=== PATIENT | male | born 1990 | race Caucasian/White ===

== ENCOUNTER 2018-08-22 11:38 | Inpatient (IN) | payer MEDICAID, MEDICARE ==
[2018-08-22] MEDS ORDERED: Ondansetron 4 MG Tab.DIS PO ONE (13:06)
[2018-08-22 13:15] LABS: ACETAMINOPHEN 154 ug/mL (10-30)
[2018-08-22] MEDS ORDERED: ACETAMINOPHEN IV ONE (13:43)
[2018-08-22] MEDS ORDERED: Acetylcysteine 20% 200 MG/ML 30 ML SDV IV ONE ×3 (13:47→14:18)
[2018-08-22] MEDS: Sodium Chloride 0.9% 10 ML Syringe FLUSH PRN ×2 (14:06→16:20)
--- NOTE | 2018-08-22 15:00 | EDM.PDOCBH ---
ED HPI GENERAL MEDICAL PROBLEM - General Chief Complaint: Drug or Alcohol Abuse Stated Complaint: INTOXICATION Time Seen by Provider: 08/22/18 12:00 Source of Information: Reports: Patient, Family History Limitations: Reports: No Limitations - History of Present Illness INITIAL COMMENTS - FREE TEXT/NARRATIVE: c/o APAP overdose pt states he tooks 30 tabs of APAP (500 mg) and 10 tabs of melatonin at 10 PM and then went to sleep, he woke up this morning and had n/v, told his mother what he had done, mother called poison control who said he had to come to hospital, poison control called us before pt's arrival mother thinks he took 10-20 tabs (5 to 10 gm) not working, lives with mother and grandmother at first would not say why he had taken them, then admitted that "I did not want to wake up" his father 1y ago, he has inc'd depression and despondency in the past month, not willing to leaving the house, sleeping poorly, eating very little he had gone to school for his GED from noon to five on Thu to ur, however stopped going he 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, performin at 6th grade level delayed crawling, poor speech until pharyngeal flap done at age 6, 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 father from diabetes and asthma no previous OD, no previous suicide attempt, no previous psych hospitalizations mother reports that pt does videogames, had gone to school, done little in past 2d PCP Dr Sharp who has rx'ed olanzapine and other meds, hydroxyzine added 2w ago at last visit pt states he has not taken his meds in the past 2w - Related Data Allergies Allergy/AdvReac Type Severity Reaction Status Date / Time No Known Allergies Allergy Verified 08/22/18 12:43 Home Meds: Home Meds Benztropine [Cogentin] 0.5 mg PO DAILY 08/22/18 [History] Benztropine [Cogentin] 1 mg PO DAILY 08/22/18 [History] OLANZapine [Olanzapine] 10 mg PO DAILY 08/22/18 [History] Pantoprazole [ProTONIX] 40 mg PO DAILY 08/22/18 [History] hydrOXYzine pamoate [Vistaril] 25 mg PO Q8H PRN 08/22/18 [History] lamoTRIgine 200 mg PO DAILY 08/22/18 [History] Past Medical History HEENT History: Reports: Impaired Vision Psychiatric History: Reports: Depression - Past Surgical History HEENT Surgical History: Reports: Adenoidectomy, Tonsillectomy, Other (See Below) Other HEENT Surgeries/Procedures: Pharyngeal flap when a young child. Social & Family History - Family History Family Medical History: Noncontributory - Tobacco Use Smoking Status *Q: Never Smoker - Caffeine Use Caffeine Use: Reports: Soda, Tea - Recreational Drug Use Recreational Drug Use: No ED ROS GENERAL - Review of Systems Review Of Systems: See Below Constitutional: Reports: No Symptoms HEENT: Reports: No Symptoms Respiratory: Reports: No Symptoms Cardiovascular: Reports: No Symptoms Endocrine: Reports: No Symptoms GI/Abdominal: Reports: No Symptoms : Reports: No Symptoms Musculoskeletal: Reports: No Symptoms Skin: Reports: No Symptoms Neurological: Reports: No Symptoms Psychiatric: Reports: Depression, Suicidal Ideation. Denies: Agitation, Hallucinations, Homicidal Ideation Hematologic/Lymphatic: Reports: No Symptoms Immunologic: Reports: No Symptoms ED EXAM, BEHAVIORAL HEALTH - Physical Exam Exam: See Below Exam Limited By: No Limitations General Appearance: Alert, WD/WN, No Apparent Distress, Other (pleasant, shaking a little, appears anxious, says "I did a dumb thing", has insight into his actions, no HI, cooperated with exam, no agitation, no hostility, rested on his back while in the ED) Eye Exam: Bilateral Eye: EOMI, Normal Inspection, PERRL Nose: Normal Inspection Throat/Mouth: Normal Inspection, Normal Lips, Normal Teeth, Normal Gums, Normal Oropharynx, Normal Voice, No Airway Compromise, Other (very poor dentition with malalignment and deep caries) Neck: Normal Inspection, Supple, Non-Tender, Full Range of Motion. No: Lymphadenopathy (R), Lymphadenopathy (L) Respiratory/Chest: No Respiratory Distress, Lungs Clear Cardiovascular: Regular Rate, Rhythm, No Edema, No Gallop, No Murmur, No Rub GI/Abdominal: Soft, Non-Tender, No Distention Back Exam: Normal Inspection, Full Range of Motion. No: CVA Tenderness (R), CVA Tenderness (L) Extremities: Normal Inspection, Non-Tender, No Pedal Edema Neurological: Alert, CN II-XII Intact, No Motor/Sensory Deficits Psychiatric: Alert, Depressed Mood, Suicidal Plan, Suicidal Thoughts. No: Tearful, Agitated, Poor Eye Contact, Uncooperative, Flight of Ideas, Homicidal Thoughts, Phobic, Auditory Hallucinations, Visual Hallucinations, Paranoid Thoughts Skin Exam: Warm, Dry, Intact, Normal color, No rash COURSE, BEHAVIORAL HEALTH COMP - Course Vital Signs: Last Vital Signs Temp 36.3 C 08/22/18 12:45 Pulse 76 08/22/18 12:45 Resp 18 08/22/18 12:45 BP 118/74 08/22/18 12:45 Pulse Ox 99 08/22/18 12:45 Orders, Labs, Meds: Active Orders 24 hr Category Date Time Status DRUG SCREEN, URINE ALERE [URCHEM] Stat Lab 08/22/18 12:45 Ordered UA W/MICROSCOPIC [URIN] Stat Lab 08/22/18 12:45 Ordered Acetylcysteine [Acetadote 20%] 3,200 mg Med 08/22/18 16:00 Active Dextrose 5% in Water 500 ml IV ONETIME Acetylcysteine [Acetadote 20%] 6,400 mg Med 08/22/18 20:00 Active Dextrose 5% in Water 1,000 ml IV ONETIME Acetylcysteine [Acetadote 20%] 9,500 mg Med 08/22/18 15:00 Active Dextrose 5% in Water 200 ml IV ONETIME Sodium Chloride 0.9% [Saline Flush] Med 08/22/18 14:06 Active 10 ml FLUSH ASDIRECTED PRN EKG 12 Lead [EK] Routine Ther 08/22/18 12:45 Ordered Medication Orders Acetylcysteine 9,500 mg/ (Dextrose/Water) 247.5 mls @ 247.5 mls/hr IV ONETIME ONE Stop: 08/22/18 15:59 Acetylcysteine 3,200 mg/ (Dextrose/Water) 516 mls @ 129 mls/hr IV ONETIME ONE Stop: 08/22/18 19:59 Acetylcysteine 6,400 mg/ (Dextrose/Water) 1,032 mls @ 64.5 mls/hr IV ONETIME ONE Stop: 08/23/18 11:59 Sodium Chloride (Saline Flush) 10 ml FLUSH ASDIRECTED PRN PRN Reason: IV Use Last Admin: 08/22/18 14:06 Dose: 10 ml Laboratory Tests 08/22/18 08/22/18 08/22/18 Range/Units 12:44 12:44 12:44 WBC 13.2 H (4.5-12.0) X10-3/uL RBC 5.58 (4.30-5.75) x10(6)uL Hgb 16.0 H (11.5-15.5) g/dL Hct 46.6 (30.0-51.3) % MCV 83.6 (80-96) fL MCH 28.6 (27.7-33.6) pg MCHC 34.2 (32.2-35.4) g/dL RDW 12.4 (11.5-15.5) % Plt Count 326 (125-369) X10(3)uL MPV 8.6 (7.4-10.4) fL Add Manual Diff Yes Neutrophils % (Manual) 88 H (46-82) % Band Neutrophils % 1 (0-6) % Lymphocytes % (Manual) 8 L (13-37) % Monocytes % (Manual) 3 L (4-12) % PT (8.7-11.1) INR (0.89-1.13) Sodium 141 (135-145) mmol/L Potassium 4.3 (3.5-5.3) mmol/L Chloride 104 (100-110) mmol/L Carbon Dioxide 23 (21-32) mmol/L BUN 12 (7-18) mg/dL Creatinine 1.2 (0.70-1.30) mg/dL Est Cr Clr Drug Dosing TNP Estimated GFR (MDRD) > 60 (>60) BUN/Creatinine Ratio 10.0 (9-20) Glucose 212 H (80-116) mg/dL Calcium 9.9 (8.6-10.2) mg/dL Total Bilirubin 0.6 (0.1-1.3) mg/dL AST 17 (5-25) IU/L ALT 25 (12-36) U/L Alkaline Phosphatase 67 (56-112) IU/L Total Protein 7.4 (6.0-8.0) g/dL Albumin 4.3 (3.5-5.2) g/dL Globulin 3.1 g/dL Albumin/Globulin Ratio 1.4 TSH, Ultra Sensitive (0.36-3.74) IU/mL Salicylates 2.0 L (2.8-20.0) mg/dL Acetaminophen 154 H* (10-30) ug/mL Ethyl Alcohol < 0.03 (<0.03) % 08/22/18 08/22/18 Range/Units 12:44 12:44 WBC (4.5-12.0) X10-3/uL RBC (4.30-5.75) x10(6)uL Hgb (11.5-15.5) g/dL Hct (30.0-51.3) % MCV (80-96) fL MCH (27.7-33.6) pg MCHC (32.2-35.4) g/dL RDW (11.5-15.5) % Plt Count (125-369) X10(3)uL MPV (7.4-10.4) fL Add Manual Diff Neutrophils % (Manual) (46-82) % Band Neutrophils % (0-6) % Lymphocytes % (Manual) (13-37) % Monocytes % (Manual) (4-12) % PT 11.3 H (8.7-11.1) INR 1.16 H (0.89-1.13) Sodium (135-145) mmol/L Potassium (3.5-5.3) mmol/L Chloride (100-110) mmol/L Carbon Dioxide (21-32) mmol/L BUN (7-18) mg/dL Creatinine (0.70-1.30) mg/dL Est Cr Clr Drug Dosing Estimated GFR (MDRD) (>60) BUN/Creatinine Ratio (9-20) Glucose (80-116) mg/dL Calcium (8.6-10.2) mg/dL Total Bilirubin (0.1-1.3) mg/dL AST (5-25) IU/L ALT (12-36) U/L Alkaline Phosphatase (56-112) IU/L Total Protein (6.0-8.0) g/dL Albumin (3.5-5.2) g/dL Globulin g/dL Albumin/Globulin Ratio TSH, Ultra Sensitive 1.11 (0.36-3.74) IU/mL Salicylates (2.8-20.0) mg/dL Acetaminophen (10-30) ug/mL Ethyl Alcohol (<0.03) % Medications Generic Name Dose Route Start Last Admin Trade Name Freq PRN Reason Stop Dose Admin Acetylcysteine 9,500 mg/ 247.5 mls @ 247.5 mls/hr 08/22/18 15:00 Dextrose/Water IV 08/22/18 15:59 ONETIME ONE Acetylcysteine 3,200 mg/ 516 mls @ 129 mls/hr 08/22/18 16:00 Dextrose/Water IV 08/22/18 19:59 ONETIME ONE Acetylcysteine 6,400 mg/ 1,032 mls @ 64.5 mls/hr 08/22/18 20:00 Dextrose/Water IV 08/23/18 11:59 ONETIME ONE Sodium Chloride 10 ml 08/22/18 14:06 08/22/18 14:06 Saline Flush FLUSH 10 ml ASDIRECTED PRN Administration IV Use Discontinued Medications Generic Name Dose Route Start Last Admin Trade Name Freq PRN Reason Stop Dose Admin Acetylcysteine 3,200 mg 08/22/18 14:15 Acetadote 20% IV 08/22/18 14:16 ONETIME ONE Acetylcysteine 6,400 mg 08/22/18 14:18 Acetadote 20% IV 08/22/18 14:19 ONETIME ONE Acetaminophen 9,500 mg/ Premix 950 mls @ 400 mls/hr 08/22/18 13:43 08/22/18 13:47 IV 08/22/18 13:57 Not Given NOW ONE Ondansetron HCl 4 mg 08/22/18 13:06 08/22/18 13:08 Zofran Odt PO 08/22/18 13:07 4 mg ONETIME ONE Administration Departure - Departure Time of Disposition: 15:18 Disposition: Refer to Observation Condition: Fair Clinical Impression: Suicide attempt by acetaminophen overdose, Acetaminophen toxicity, Major depression, Complicated grief, Stickler syndrome - Discharge Information *PRESCRIPTION DRUG MONITORING PROGRAM REVIEWED*: Not Applicable *COPY OF PRESCRIPTION DRUG MONITORING REPORT IN PATIENT TAMMI: Not Applicable - My Orders Last 24 Hours: My Active Orders 08/22/18 12:45 DRUG SCREEN, URINE ALERE [URCHEM] Stat UA W/MICROSCOPIC [URIN] Stat EKG 12 Lead [EK] Routine 08/22/18 14:06 Sodium Chloride 0.9% [Saline Flush] 10 ml FLUSH ASDIRECTED PRN 08/22/18 15:00 Acetylcysteine [Acetadote 20%] 9,500 mg Dextrose 5% in Water 200 ml IV ONETIME 08/22/18 16:00 Acetylcysteine [Acetadote 20%] 3,200 mg Dextrose 5% in Water 500 ml IV ONETIME 08/22/18 20:00 Acetylcysteine [Acetadote 20%] 6,400 mg Dextrose 5% in Water 1,000 ml IV ONETIME - Assessment/Plan Last 24 Hours: My Active Orders 08/22/18 12:45 DRUG SCREEN, URINE ALERE [URCHEM] Stat UA W/MICROSCOPIC [URIN] Stat EKG 12 Lead [EK] Routine 08/22/18 14:06 Sodium Chloride 0.9% [Saline Flush] 10 ml FLUSH ASDIRECTED PRN 08/22/18 15:00 Acetylcysteine [Acetadote 20%] 9,500 mg Dextrose 5% in Water 200 ml IV ONETIME 08/22/18 16:00 Acetylcysteine [Acetadote 20%] 3,200 mg Dextrose 5% in Water 500 ml IV ONETIME 08/22/18 20:00 Acetylcysteine [Acetadote 20%] 6,400 mg Dextrose 5% in Water 1,000 ml IV ONETIME
[2018-08-22] MEDS: WATER IV ONE ×4 (15:05→15:12)
[2018-08-22] MEDS: ACETYLCYSTEINE IV ONE ×4 (15:05→15:12)
[2018-08-22] MEDS: DEXTROSE 5% IV ONE ×4 (15:05→15:12)
[2018-08-22] MEDS ORDERED: WATER IV ONE ×4 (16:00→20:00)
[2018-08-22] MEDS ORDERED: ACETYLCYSTEINE IV ONE ×4 (16:00→20:00)
[2018-08-22] MEDS ORDERED: DEXTROSE 5% IV ONE ×4 (16:00→20:00)
[2018-08-22] MEDS: Ondansetron 4 MG/2 ML SDV IVPUSH PRN ×2 (16:20→22:54)
[2018-08-22] MEDS ORDERED: Metoclopramide 10 MG/2 ML SDV IVPUSH PRN (18:22)
--- NOTE | 2018-08-22 18:31 | PCM.HP ---
H&P History of Present Illness - General Date of Service: 08/22/18 Admit Problem/Dx: Admission Diagnosis/Problem Admission Diagnosis/Problem Acetaminophen overdose Source of Information: Patient, Family History Limitations: Reports: Altered Mental Status - History of Present Illness Initial Comments - Free Text/Narative: Billy is a 27-year-old male that was admitted for acetaminophen overdose. He endorsed to taking between 10 and 20 tablets of acetaminophen, because he did ' not want to wake up'. He has a history of bipolar 1, depression and anxiety .2 weeks ago; he quit taking most of his antipsychotics and has been using hydroxyzine as needed. He also drinks occasionally ,but denies use of illicit drugs. He mostly complains of vomiting now; but denies any abdominal pain, fever or chills. In the ER;he was started on N Acetyl cysteine;after consultation with the pharmacological litigation specialist. The mother states that his mental status appears slow, and he is not himself. He has a history of mild intellectual disability. He feels depressed, and sad;because his father last year. - Related Data Allergies/Adverse Reactions: Allergies Allergy/AdvReac Type Severity Reaction Status Date / Time No Known Allergies Allergy Verified 08/22/18 12:43 Home Medications: Home Meds Benztropine [Cogentin] 0.5 mg PO DAILY 08/22/18 [History] Benztropine [Cogentin] 1 mg PO DAILY 08/22/18 [History] OLANZapine [Olanzapine] 10 mg PO DAILY 08/22/18 [History] Pantoprazole [ProTONIX] 40 mg PO DAILY 08/22/18 [History] hydrOXYzine pamoate [Vistaril] 25 mg PO Q8H PRN 08/22/18 [History] lamoTRIgine 200 mg PO DAILY 08/22/18 [History] Past Medical History HEENT History: Reports: Impaired Vision Psychiatric History: Reports: Depression - Past Surgical History HEENT Surgical History: Reports: Adenoidectomy, Tonsillectomy, Other (See Below) Other HEENT Surgeries/Procedures: Pharyngeal flap when a young child. Social & Family History - Family History Family Medical History: Noncontributory - Tobacco Use Smoking Status *Q: Never Smoker - Caffeine Use Caffeine Use: Reports: Soda, Tea - Recreational Drug Use Recreational Drug Use: No H&P Review of Systems - Review of Systems: Review Of Systems: ROS reveals no pertinent complaints other than HPI. Exam - Exam Exam: See Below - Vital Signs Vital Signs: Last Vital Signs Temp 97.7 F 08/22/18 15:27 Pulse 85 08/22/18 15:27 Resp 18 08/22/18 15:27 BP 117/69 08/22/18 15:27 Pulse Ox 100 08/22/18 15:27 Weight: 60.827 kg - Exam General: Alert, Oriented, 4 HEENT: PERRLA, Hearing Intact, Mucosa Moist & [employer], Nares Patent, Normal Nasal Septum, Posterior Pharynx Clear, Conjunctiva Clear, EOMI, EACs Clear, TMs Clear Neck: Supple, Trachea Midline, 2 Lungs: Clear to Auscultation, Normal Respiratory Effort Cardiovascular: Regular Rate, Regular Rhythm GI/Abdominal Exam: Normal Bowel Sounds, Soft, Non-Tender, No Organomegaly, No Distention, No Abnormal Bruit, No Mass, Pelvis Stable (Male) Exam: Deferred Rectal (Males) Exam: Normal Exam, Deferred Back Exam: Normal Inspection, Full Range of Motion, NT Extremities: Normal Inspection, Normal Range of Motion, Non-Tender, No Pedal Edema, Normal Capillary Refill Skin: Warm, Dry, Intact Neurological: Cranial Nerves Intact, Reflexes Equal Bilateral Neuro Extensive - Mental Status: Alert, Oriented x3, Normal Mood/Affect, Normal Cognition Neuro Extensive - Motor, Sensory, Reflexes: CN II-XII Intact, Normal Gait, Normal Reflexes Psychiatric: Alert, Depressed - Patient Data Lab Results Last 24 hrs: Laboratory Results - last 24 hr 08/22/18 08/22/18 08/22/18 Range/Units 12:44 12:44 12:44 WBC 13.2 H (4.5-12.0) X10-3/uL RBC 5.58 (4.30-5.75) x10(6)uL Hgb 16.0 H (11.5-15.5) g/dL Hct 46.6 (30.0-51.3) % MCV 83.6 (80-96) fL MCH 28.6 (27.7-33.6) pg MCHC 34.2 (32.2-35.4) g/dL RDW 12.4 (11.5-15.5) % Plt Count 326 (125-369) X10(3)uL MPV 8.6 (7.4-10.4) fL Add Manual Diff Yes Neutrophils % (Manual) 88 H (46-82) % Band Neutrophils % 1 (0-6) % Lymphocytes % (Manual) 8 L (13-37) % Monocytes % (Manual) 3 L (4-12) % PT (8.7-11.1) INR (0.89-1.13) Sodium 141 (135-145) mmol/L Potassium 4.3 (3.5-5.3) mmol/L Chloride 104 (100-110) mmol/L Carbon Dioxide 23 (21-32) mmol/L BUN 12 (7-18) mg/dL Creatinine 1.2 (0.70-1.30) mg/dL Est Cr Clr Drug Dosing TNP Estimated GFR (MDRD) > 60 (>60) BUN/Creatinine Ratio 10.0 (9-20) Glucose 212 H (80-116) mg/dL Calcium 9.9 (8.6-10.2) mg/dL Total Bilirubin 0.6 (0.1-1.3) mg/dL AST 17 (5-25) IU/L ALT 25 (12-36) U/L Alkaline Phosphatase 67 (56-112) IU/L Total Protein 7.4 (6.0-8.0) g/dL Albumin 4.3 (3.5-5.2) g/dL Globulin 3.1 g/dL Albumin/Globulin Ratio 1.4 TSH, Ultra Sensitive (0.36-3.74) IU/mL Salicylates 2.0 L (2.8-20.0) mg/dL Acetaminophen 154 H* (10-30) ug/mL Ethyl Alcohol < 0.03 (<0.03) % 08/22/18 08/22/18 Range/Units 12:44 12:44 WBC (4.5-12.0) X10-3/uL RBC (4.30-5.75) x10(6)uL Hgb (11.5-15.5) g/dL Hct (30.0-51.3) % MCV (80-96) fL MCH (27.7-33.6) pg MCHC (32.2-35.4) g/dL RDW (11.5-15.5) % Plt Count (125-369) X10(3)uL MPV (7.4-10.4) fL Add Manual Diff Neutrophils % (Manual) (46-82) % Band Neutrophils % (0-6) % Lymphocytes % (Manual) (13-37) % Monocytes % (Manual) (4-12) % PT 11.3 H (8.7-11.1) INR 1.16 H (0.89-1.13) Sodium (135-145) mmol/L Potassium (3.5-5.3) mmol/L Chloride (100-110) mmol/L Carbon Dioxide (21-32) mmol/L BUN (7-18) mg/dL Creatinine (0.70-1.30) mg/dL Est Cr Clr Drug Dosing Estimated GFR (MDRD) (>60) BUN/Creatinine Ratio (9-20) Glucose (80-116) mg/dL Calcium (8.6-10.2) mg/dL Total Bilirubin (0.1-1.3) mg/dL AST (5-25) IU/L ALT (12-36) U/L Alkaline Phosphatase (56-112) IU/L Total Protein (6.0-8.0) g/dL Albumin (3.5-5.2) g/dL Globulin g/dL Albumin/Globulin Ratio TSH, Ultra Sensitive 1.11 (0.36-3.74) IU/mL Salicylates (2.8-20.0) mg/dL Acetaminophen (10-30) ug/mL Ethyl Alcohol (<0.03) % Result Diagrams: 08/22/18 12:44 08/22/18 12:44 EKG INTERPRETATION Rhythm: NSR - Problem List (1) Mild intellectual disability Status: Acute Current Visit: Yes (2) Bipolar 1 disorder SNOMED Code(s): 009628896 ICD Code: F31.9 - BIPOLAR DISORDER, UNSPECIFIED Status: Acute Current Visit: Yes (3) Acetaminophen toxicity SNOMED Code(s): 36869544 ICD Code: T39.1X1A - POISONING BY 4-AMINOPHENOL DERIVATIVES, ACCIDENTAL, INIT Status: Acute Current Visit: Yes Qualifiers: Encounter type: initial encounter (4) Complicated grief Status: Acute Current Visit: Yes (5) Major depression SNOMED Code(s): 932813429 ICD Code: F32.9 - MAJOR DEPRESSIVE DISORDER, SINGLE EPISODE, UNSPECIFIED Status: Acute Current Visit: Yes Qualifiers: Major depression recurrence: recurrent Active/Remission status: currently active (6) Stickler syndrome SNOMED Code(s): 54485496 ICD Code: Q89.8 - OTHER SPECIFIED CONGENITAL MALFORMATIONS Status: Acute Current Visit: Yes (7) Suicide attempt by acetaminophen overdose SNOMED Code(s): 424710200 ICD Code: T39.1X2A - POISONING BY 4-AMINOPHENOL DERIVATIVES, SELF-HARM, INIT Status: Acute Current Visit: Yes Qualifiers: Encounter type: initial encounter Qualified Code(s): T39.1X2A - Poisoning by 4-Aminophenol derivatives, intentional self-harm, initial encounter Problem List Initiated/Reviewed/Updated: Yes Orders Last 24hrs: Active Orders 24 hr Category Date Time Status Admission Status [Patient Status] [ADT] Routine ADT 08/22/18 14:57 Active Nothing per Oral Now Diet [DIET] Diet 08/23/18 Breakfast Ordered Head wo Cont [CT] Routine Exams 08/22/18 18:21 Ordered ACETAMINOPHEN [CHEM] AM Lab 08/23/18 05:11 Ordered ACETAMINOPHEN [CHEM] Stat Lab 08/22/18 18:24 Ordered CBC WITH AUTO DIFF [HEME] AM Lab 08/23/18 05:11 Ordered COMPREHENSIVE METABOLIC PN,CMP [CHEM] AM Lab 08/23/18 05:11 Ordered COMPREHENSIVE METABOLIC PN,CMP [CHEM] Stat Lab 08/22/18 18:22 Ordered DRUG SCREEN, URINE ALERE [URCHEM] Stat Lab 08/22/18 12:45 Ordered UA W/MICROSCOPIC [URIN] Stat Lab 08/22/18 12:45 Ordered Acetylcysteine [Acetadote 20%] 3,200 mg Med 08/22/18 16:00 Active Dextrose 5% in Water 500 ml IV ONETIME Acetylcysteine [Acetadote 20%] 6,400 mg Med 08/22/18 20:00 Active Dextrose 5% in Water 1,000 ml IV ONETIME Metoclopramide [Reglan] Med 08/22/18 18:22 Ordered 10 mg IVPUSH Q8H PRN Ondansetron [Zofran] Med 08/22/18 16:07 Active 4 mg IVPUSH Q4H PRN Sodium Chloride 0.9% @ 100 MLS/HR(1,000ml) Med 08/22/18 18:30 Ordered Sodium Chloride 0.9% [Normal Saline] 1,000 ml IV ASDIRECTED Sodium Chloride 0.9% [Saline Flush] Med 08/22/18 14:06 Active 10 ml FLUSH ASDIRECTED PRN Resuscitation Status Routine Resus Stat 08/22/18 18:24 Ordered EKG 12 Lead [EK] Routine Ther 08/22/18 12:45 Ordered Medication Orders Acetylcysteine 3,200 mg/ (Dextrose/Water) 516 mls @ 129 mls/hr IV ONETIME ONE Stop: 08/22/18 19:59 Last Admin: 08/22/18 16:26 Dose: 129 mls/hr Acetylcysteine 6,400 mg/ (Dextrose/Water) 1,032 mls @ 64.5 mls/hr IV ONETIME ONE Stop: 08/23/18 11:59 Sodium Chloride (Normal Saline) 1,000 mls @ 100 mls/hr IV ASDIRECTED RAGINI Metoclopramide HCl (Reglan) 10 mg IVPUSH Q8H PRN PRN Reason: Vomiting Ondansetron HCl (Zofran) 4 mg IVPUSH Q4H PRN PRN Reason: Nausea/Vomiting Last Admin: 08/22/18 16:20 Dose: 4 mg Sodium Chloride (Saline Flush) 10 ml FLUSH ASDIRECTED PRN PRN Reason: IV Use Last Admin: 08/22/18 16:20 Dose: 10 ml Admin: 08/22/18 14:06 Dose: 10 ml Assessment/Plan Comment:: Continue with the N acetyl cysteine treatment, 20 hour protocol as advised by the event executive-Poison Board. I will order a CT of the head, and a urine drug screen, along with a repeat acetaminophen level and CMP. I will also keep him nothing by mouth and we will use Reglan when necessary or Zofran for vomiting. Replace IV fluids in the meantime. He states that he wants to go home after treatment but will discuss this tomorrow especially given the suicidal attempt about an inpatient treatment will be necessary
[2018-08-22] MEDS ORDERED: Potassium Chloride 20 MEQ Tab.ER PO ONE (21:00)
[2018-08-22] MEDS ORDERED: LORazepam 2 MG/ML SDV ONE (23:15)
[2018-08-22] MEDS: LORazepam 2 MG/ML SDV IVPUSH ONE (23:20)
[2018-08-23] MEDS: LORazepam 2 MG/ML SDV IVPUSH ONE (00:30)
[2018-08-23] MEDS ORDERED: Aluminum Hydroxide/Magnesium Hydroxide Susp 30 ML Cup ONE (02:24)
[2018-08-23] MEDS: Aluminum Hydroxide/Magnesium Hydroxide Susp 30 ML Cup PO PRN (03:16)
[2018-08-23 07:02] LABS: ACETAMINOPHEN 13 ug/mL (10-30)
[2018-08-23] MEDS ORDERED: Potassium Chloride 20 MEQ Tab.ER PO ONE (09:00)
[2018-08-23] MEDS ORDERED: NS + KCl 20mEq/L 1,000 ML IV SCH (10:00)
--- NOTE | 2018-08-23 10:36 | PCM.PN ---
<Candy Gupta - Last Filed: 08/23/18 10:56> - General Info Date of Service: 08/23/18 Subjective Update: Billy is a 27 years old male with PMHx of depression, anxiety. Patient took around 20 tabs of Tylenol 500 mg, and around 10 tabs of 3 mg of melatonin on Thursday night. his intention is to go and see his father, who last year due to complication of PNA. Patient regrets that next day, he reports he start feeling sick with nausea and vomiting on Thursday. he was admitted to hospital for further management. Patient started on IV N-acetylcysteine per protocol. He also received IV Zofran for nausea. Overnight event, patient was restless. required Ativan 0.5 mg IV x 2. Nausea, no Vomiting. he also c/o feeling warm and chills, but no fever documented. he also c/o abdominal pain. last BM was Thursday. Patient denies cough, SOB. he reports some chest tightness. hx of GERD. No dysuria. generalized abdominal tenderness - Review of Systems General: Reports: Fatigue, Chills Pulmonary: Reports: No Symptoms Cardiovascular: Reports: No Symptoms Gastrointestinal: Reports: Abdominal Pain, Decreased Appetite, Nausea, Vomiting Genitourinary: Reports: No Symptoms Musculoskeletal: Reports: No Symptoms Skin: Reports: No Symptoms Neurological: Reports: No Symptoms Psychiatric: Reports: Depression, Mood Lability, Anxiety - Patient Data Vitals - Most Recent: Last Vital Signs Temp 36.6 C 08/23/18 08:00 Pulse 73 08/23/18 08:00 Resp 18 08/23/18 08:00 BP 136/83 08/23/18 08:00 Pulse Ox 97 08/23/18 08:00 Weight - Most Recent: 60.827 kg I&O - Last 24 Hours: Intake & Output 08/22/18 08/23/18 08/23/18 22:59 06:59 14:59 Intake Total 885 545 Output Total 750 250 Balance 135 295 Lab Results Last 24 Hours: Laboratory Results - last 24 hr 08/22/18 08/22/18 08/22/18 Range/Units 12:44 12:44 12:44 WBC 13.2 H (4.5-12.0) X10-3/uL RBC 5.58 (4.30-5.75) x10(6)uL Hgb 16.0 H (11.5-15.5) g/dL Hct 46.6 (30.0-51.3) % MCV 83.6 (80-96) fL MCH 28.6 (27.7-33.6) pg MCHC 34.2 (32.2-35.4) g/dL RDW 12.4 (11.5-15.5) % Plt Count 326 (125-369) X10(3)uL MPV 8.6 (7.4-10.4) fL Add Manual Diff Yes Neutrophils % (Manual) 88 H (46-82) % Band Neutrophils % 1 (0-6) % Lymphocytes % (Manual) 8 L (13-37) % Monocytes % (Manual) 3 L (4-12) % PT (8.7-11.1) INR (0.89-1.13) Sodium 141 (135-145) mmol/L Potassium 4.3 (3.5-5.3) mmol/L Chloride 104 (100-110) mmol/L Carbon Dioxide 23 (21-32) mmol/L BUN 12 (7-18) mg/dL Creatinine 1.2 (0.70-1.30) mg/dL Est Cr Clr Drug Dosing TNP Estimated GFR (MDRD) > 60 (>60) BUN/Creatinine Ratio 10.0 (9-20) Glucose 212 H (80-116) mg/dL Calcium 9.9 (8.6-10.2) mg/dL Total Bilirubin 0.6 (0.1-1.3) mg/dL AST 17 (5-25) IU/L ALT 25 (12-36) U/L Alkaline Phosphatase 67 (56-112) IU/L Total Protein 7.4 (6.0-8.0) g/dL Albumin 4.3 (3.5-5.2) g/dL Globulin 3.1 g/dL Albumin/Globulin Ratio 1.4 TSH, Ultra Sensitive (0.36-3.74) IU/mL Urine Color (YELLOW) Urine Appearance (CLEAR) Urine pH (5.0-6.5) Ur Specific [place] (1.010-1.025) Urine Protein (NEGATIVE) mg/dL Urine Glucose (UA) (NEGATIVE) mg/dL Urine Ketones (NEGATIVE) mg/dL Urine Occult Blood (NEGATIVE) Urine Nitrite (NEGATIVE) Urine Bilirubin (NEGATIVE) Urine Urobilinogen (NEGATIVE) mg/dL Ur Leukocyte Esterase (NEGATIVE) Urine RBC (0) Urine WBC (0) Ur Squamous Epith Cells (NS,R,O) Urine Bacteria (NS) Salicylates 2.0 L (2.8-20.0) mg/dL Urine Opiates Screen (NEGATIVE) Ur Oxycodone Screen (NEGATIVE) Ur Propoxyphene Screen (NEGATIVE) Acetaminophen 154 H* (10-30) ug/mL Ur Barbituates Screen (NEGATIVE) Ur Tricyclics Screen (NEGATIVE) Ur Phencyclidine Scrn (NEGATIVE) Ur Amphetamine Screen (NEGATIVE) Urine MDMA Screen (NEGATIVE) U Benzodiazepines Scrn (NEGATIVE) U Cocaine Metab Screen (NEGATIVE) U Marijuana (THC) Screen (NEGATIVE) Ethyl Alcohol < 0.03 (<0.03) % Blood Type Gel Antibody Screen Crossmatch 08/22/18 08/22/18 08/22/18 Range/Units 12:44 12:44 18:33 WBC (4.5-12.0) X10-3/uL RBC (4.30-5.75) x10(6)uL Hgb (11.5-15.5) g/dL Hct (30.0-51.3) % MCV (80-96) fL MCH (27.7-33.6) pg MCHC (32.2-35.4) g/dL RDW (11.5-15.5) % Plt Count (125-369) X10(3)uL MPV (7.4-10.4) fL Add Manual Diff Neutrophils % (Manual) (46-82) % Band Neutrophils % (0-6) % Lymphocytes % (Manual) (13-37) % Monocytes % (Manual) (4-12) % PT 11.3 H (8.7-11.1) INR 1.16 H (0.89-1.13) Sodium 143 (135-145) mmol/L Potassium 3.1 L D (3.5-5.3) mmol/L Chloride 102 (100-110) mmol/L Carbon Dioxide 23 (21-32) mmol/L BUN 12 (7-18) mg/dL Creatinine 1.0 (0.70-1.30) mg/dL Est Cr Clr Drug Dosing 95.46 Estimated GFR (MDRD) > 60 (>60) BUN/Creatinine Ratio 12.0 (9-20) Glucose 195 H (80-116) mg/dL Calcium 9.9 (8.6-10.2) mg/dL Total Bilirubin 1.3 (0.1-1.3) mg/dL AST 22 D (5-25) IU/L ALT 29 D (12-36) U/L Alkaline Phosphatase 62 (56-112) IU/L Total Protein 7.4 (6.0-8.0) g/dL Albumin 4.1 (3.5-5.2) g/dL Globulin 3.3 g/dL Albumin/Globulin Ratio 1.2 TSH, Ultra Sensitive 1.11 (0.36-3.74) IU/mL Urine Color (YELLOW) Urine Appearance (CLEAR) Urine pH (5.0-6.5) Ur Specific [place] (1.010-1.025) Urine Protein (NEGATIVE) mg/dL Urine Glucose (UA) (NEGATIVE) mg/dL Urine Ketones (NEGATIVE) mg/dL Urine Occult Blood (NEGATIVE) Urine Nitrite (NEGATIVE) Urine Bilirubin (NEGATIVE) Urine Urobilinogen (NEGATIVE) mg/dL Ur Leukocyte Esterase (NEGATIVE) Urine RBC (0) Urine WBC (0) Ur Squamous Epith Cells (NS,R,O) Urine Bacteria (NS) Salicylates (2.8-20.0) mg/dL Urine Opiates Screen (NEGATIVE) Ur Oxycodone Screen (NEGATIVE) Ur Propoxyphene Screen (NEGATIVE) Acetaminophen (10-30) ug/mL Ur Barbituates Screen (NEGATIVE) Ur Tricyclics Screen (NEGATIVE) Ur Phencyclidine Scrn (NEGATIVE) Ur Amphetamine Screen (NEGATIVE) Urine MDMA Screen (NEGATIVE) U Benzodiazepines Scrn (NEGATIVE) U Cocaine Metab Screen (NEGATIVE) U Marijuana (THC) Screen (NEGATIVE) Ethyl Alcohol (<0.03) % Blood Type Gel Antibody Screen Crossmatch 08/22/18 08/22/18 08/22/18 Range/Units 18:33 19:15 19:15 WBC (4.5-12.0) X10-3/uL RBC (4.30-5.75) x10(6)uL Hgb (11.5-15.5) g/dL Hct (30.0-51.3) % MCV (80-96) fL MCH (27.7-33.6) pg MCHC (32.2-35.4) g/dL RDW (11.5-15.5) % Plt Count (125-369) X10(3)uL MPV (7.4-10.4) fL Add Manual Diff Neutrophils % (Manual) (46-82) % Band Neutrophils % (0-6) % Lymphocytes % (Manual) (13-37) % Monocytes % (Manual) (4-12) % PT (8.7-11.1) INR (0.89-1.13) Sodium (135-145) mmol/L Potassium (3.5-5.3) mmol/L Chloride (100-110) mmol/L Carbon Dioxide (21-32) mmol/L BUN (7-18) mg/dL Creatinine (0.70-1.30) mg/dL Est Cr Clr Drug Dosing Estimated GFR (MDRD) (>60) BUN/Creatinine Ratio (9-20) Glucose (80-116) mg/dL Calcium (8.6-10.2) mg/dL Total Bilirubin (0.1-1.3) mg/dL AST (5-25) IU/L ALT (12-36) U/L Alkaline Phosphatase (56-112) IU/L Total Protein (6.0-8.0) g/dL Albumin (3.5-5.2) g/dL Globulin g/dL Albumin/Globulin Ratio TSH, Ultra Sensitive (0.36-3.74) IU/mL Urine Color Yellow (YELLOW) Urine Appearance Clear (CLEAR) Urine pH 5.0 (5.0-6.5) Ur Specific [place] 1.025 (1.010-1.025) Urine Protein Negative (NEGATIVE) mg/dL Urine Glucose (UA) >1000 H (NEGATIVE) mg/dL Urine Ketones 150 H (NEGATIVE) mg/dL Urine Occult Blood Negative (NEGATIVE) Urine Nitrite Negative (NEGATIVE) Urine Bilirubin Negative (NEGATIVE) Urine Urobilinogen Normal (NEGATIVE) mg/dL Ur Leukocyte Esterase Negative (NEGATIVE) Urine RBC 0-5 (0) Urine WBC 0-5 (0) Ur Squamous Epith Cells Few H (NS,R,O) Urine Bacteria Few H (NS) Salicylates (2.8-20.0) mg/dL Urine Opiates Screen Negative (NEGATIVE) Ur Oxycodone Screen Negative (NEGATIVE) Ur Propoxyphene Screen Negative (NEGATIVE) Acetaminophen 80 H* (10-30) ug/mL Ur Barbituates Screen Negative (NEGATIVE) Ur Tricyclics Screen Negative (NEGATIVE) Ur Phencyclidine Scrn Negative (NEGATIVE) Ur Amphetamine Screen Negative (NEGATIVE) Urine MDMA Screen Negative (NEGATIVE) U Benzodiazepines Scrn Negative (NEGATIVE) U Cocaine Metab Screen Negative (NEGATIVE) U Marijuana (THC) Screen Negative (NEGATIVE) Ethyl Alcohol (<0.03) % Blood Type Gel Antibody Screen Crossmatch 08/23/18 08/23/18 08/23/18 Range/Units 06:42 06:42 10:25 WBC 26.7 H (4.5-12.0) X10-3/uL RBC 5.63 (4.30-5.75) x10(6)uL Hgb 15.9 H (11.5-15.5) g/dL Hct 46.6 (30.0-51.3) % MCV 82.9 (80-96) fL MCH 28.3 (27.7-33.6) pg MCHC 34.1 (32.2-35.4) g/dL RDW 12.4 (11.5-15.5) % Plt Count 360 (125-369) X10(3)uL MPV 8.6 (7.4-10.4) fL Add Manual Diff Yes Neutrophils % (Manual) 84 H (46-82) % Band Neutrophils % (0-6) % Lymphocytes % (Manual) 13 (13-37) % Monocytes % (Manual) 3 L (4-12) % PT (8.7-11.1) INR (0.89-1.13) Sodium 140 (135-145) mmol/L Potassium 2.9 L (3.5-5.3) mmol/L Chloride 100 (100-110) mmol/L Carbon Dioxide 28 (21-32) mmol/L BUN 10 (7-18) mg/dL Creatinine 0.9 (0.70-1.30) mg/dL Est Cr Clr Drug Dosing 106.07 Estimated GFR (MDRD) > 60 (>60) BUN/Creatinine Ratio 11.1 (9-20) Glucose 135 H (80-116) mg/dL Calcium 9.4 (8.6-10.2) mg/dL Total Bilirubin 1.3 (0.1-1.3) mg/dL AST 68 H D (5-25) IU/L ALT 69 H D (12-36) U/L Alkaline Phosphatase 62 (56-112) IU/L Total Protein 6.7 (6.0-8.0) g/dL Albumin 3.8 (3.5-5.2) g/dL Globulin 2.9 g/dL Albumin/Globulin Ratio 1.3 TSH, Ultra Sensitive (0.36-3.74) IU/mL Urine Color (YELLOW) Urine Appearance (CLEAR) Urine pH (5.0-6.5) Ur Specific [place] (1.010-1.025) Urine Protein (NEGATIVE) mg/dL Urine Glucose (UA) (NEGATIVE) mg/dL Urine Ketones (NEGATIVE) mg/dL Urine Occult Blood (NEGATIVE) Urine Nitrite (NEGATIVE) Urine Bilirubin (NEGATIVE) Urine Urobilinogen (NEGATIVE) mg/dL Ur Leukocyte Esterase (NEGATIVE) Urine RBC (0) Urine WBC (0) Ur Squamous Epith Cells (NS,R,O) Urine Bacteria (NS) Salicylates (2.8-20.0) mg/dL Urine Opiates Screen (NEGATIVE) Ur Oxycodone Screen (NEGATIVE) Ur Propoxyphene Screen (NEGATIVE) Acetaminophen 13 (10-30) ug/mL Ur Barbituates Screen (NEGATIVE) Ur Tricyclics Screen (NEGATIVE) Ur Phencyclidine Scrn (NEGATIVE) Ur Amphetamine Screen (NEGATIVE) Urine MDMA Screen (NEGATIVE) U Benzodiazepines Scrn (NEGATIVE) U Cocaine Metab Screen (NEGATIVE) U Marijuana (THC) Screen (NEGATIVE) Ethyl Alcohol (<0.03) % Blood Type Cancelled Gel Antibody Screen Cancelled Crossmatch See Detail Med Orders - Current: Current Medications Al Hydroxide/Mg Hydroxide (Mag-Al Susp) 30 ml PO Q2H PRN PRN Reason: Epigastric pain Last Admin: 08/23/18 03:16 Dose: 30 ml Acetylcysteine 6,400 mg/ (Dextrose/Water) 1,032 mls @ 64.5 mls/hr IV ONETIME ONE Stop: 08/23/18 11:59 Last Admin: 08/22/18 20:40 Dose: 64.5 mls/hr Sodium Chloride (Normal Saline) 1,000 mls @ 100 mls/hr IV ASDIRECTED RAGINI Potassium Chloride/Sodium Chloride (Normal Saline With 20 Meq Kcl) 1,000 mls @ 75 mls/hr IV Q13H RAGINI Metoclopramide HCl (Reglan) 10 mg IVPUSH Q8H PRN PRN Reason: Vomiting Last Admin: 08/22/18 19:50 Dose: 10 mg Ondansetron HCl (Zofran) 4 mg IVPUSH Q4H PRN PRN Reason: Nausea/Vomiting Last Admin: 08/22/18 22:54 Dose: 4 mg Pantoprazole Sodium (Protonix Iv) 40 mg IVPUSH Q24H RAGINI Sodium Chloride (Saline Flush) 10 ml FLUSH ASDIRECTED PRN PRN Reason: IV Use Last Admin: 08/22/18 16:20 Dose: 10 ml Discontinued Medications Acetylcysteine (Acetadote 20%) 3,200 mg IV ONETIME ONE Stop: 08/22/18 14:16 Acetylcysteine (Acetadote 20%) 6,400 mg IV ONETIME ONE Stop: 08/22/18 14:19 Al Hydroxide/Mg Hydroxide (Mag-Al Susp) Confirm Administered Dose 30 ml .ROUTE .STK-MED ONE Stop: 08/23/18 02:25 Last Admin: 08/23/18 04:38 Dose: Not Given Acetaminophen 9,500 mg/ Premix 950 mls @ 400 mls/hr IV NOW ONE Stop: 08/22/18 13:57 Last Admin: 08/22/18 13:47 Dose: Not Given Acetylcysteine 9,500 mg/ (Dextrose/Water) 247.5 mls @ 247.5 mls/hr IV ONETIME ONE Stop: 08/22/18 15:59 Last Admin: 08/22/18 15:12 Dose: 201 mls/hr Acetylcysteine 3,200 mg/ (Dextrose/Water) 516 mls @ 129 mls/hr IV ONETIME ONE Stop: 08/22/18 19:59 Last Admin: 08/22/18 16:26 Dose: 129 mls/hr Lorazepam (Ativan) Confirm Administered Dose 2 mg .ROUTE .STK-MED ONE Stop: 08/22/18 23:16 Last Admin: 08/23/18 00:51 Dose: Not Given Lorazepam (Ativan) 0.5 mg IVPUSH ONETIME ONE Stop: 08/22/18 23:05 Last Admin: 08/23/18 00:30 Dose: 0.5 mg Ondansetron HCl (Zofran Odt) 4 mg PO ONETIME ONE Stop: 08/22/18 13:07 Last Admin: 08/22/18 13:08 Dose: 4 mg Potassium Chloride (Klor-Con M20) 40 meq PO ONETIME ONE Stop: 08/22/18 21:01 Last Admin: 08/22/18 22:54 Dose: Not Given Potassium Chloride (Klor-Con M20) 40 meq PO ONETIME ONE Stop: 08/23/18 09:01 - Exam General: Alert, Oriented, Cooperative, No Acute Distress HEENT: Pupils Equal, Pupils Reactive Neck: Supple Lungs: Clear to Auscultation, Normal Respiratory Effort Cardiovascular: Regular Rate, Regular Rhythm, No Murmurs GI/Abdominal Exam: Normal Bowel Sounds, Soft, No Distention, No Mass, Tender Extremities: Normal Inspection, Normal Range of Motion, Non-Tender, No Pedal Edema Skin: Warm Psy/Mental Status: Alert, Normal Affect (Patient reports that he regret his suicidal attempt. and he doen't want to . he is willing to see outpatient therapist ) EKG INTERPRETATION EKG Date: 08/23/18 Rhythm: NSR - Problem List & Annotations (1) Bipolar 1 disorder SNOMED Code(s): 284372710 Code(s): F31.9 - BIPOLAR DISORDER, UNSPECIFIED Status: Acute Current Visit: Yes (2) Transaminitis SNOMED Code(s): 383147669, 070408910 Code(s): R74.0 - NONSPEC ELEV OF LEVELS OF TRANSAMNS & LACTIC ACID DEHYDRGNSE Status: Acute Current Visit: Yes (3) Acetaminophen toxicity SNOMED Code(s): 97960936 Code(s): T39.1X1A - POISONING BY 4-AMINOPHENOL DERIVATIVES, ACCIDENTAL, INIT Status: Acute Current Visit: Yes Qualifiers: Encounter type: initial encounter (4) Major depression SNOMED Code(s): 626182791 Code(s): F32.9 - MAJOR DEPRESSIVE DISORDER, SINGLE EPISODE, UNSPECIFIED Status: Acute Current Visit: Yes Qualifiers: Major depression recurrence: recurrent Active/Remission status: currently active (5) Suicide attempt by acetaminophen overdose SNOMED Code(s): 007733856 Code(s): T39.1X2A - POISONING BY 4-AMINOPHENOL DERIVATIVES, SELF-HARM, INIT Status: Acute Current Visit: Yes Qualifiers: Encounter type: initial encounter Qualified Code(s): T39.1X2A - Poisoning by 4-Aminophenol derivatives, intentional self-harm, initial encounter (6) Leukocytosis SNOMED Code(s): 609786892, 666576442 Code(s): D72.829 - ELEVATED WHITE BLOOD CELL COUNT, UNSPECIFIED Status: Acute Current Visit: Yes - Problem List Review Problem List Initiated/Reviewed/Updated: Yes - My Orders Last 24 Hours: My Active Orders 08/23/18 09:36 CULTURE URINE [RM] Routine UA W/O MICROSCOPIC [URIN] Routine 08/23/18 10:00 Pantoprazole [ProTONIX IV] 40 mg IVPUSH Q24H Sodium Chloride 0.9% with KCl 20 mEq @ 75 mL/Hr (1000 mL) NS + KCl 20mEq/L [ Normal Saline with 20 mEq KCl] 1,000 ml IV ASDIRECTED 08/23/18 14:00 CBC WITH AUTO DIFF [HEME] Timed COMPREHENSIVE METABOLIC PN,CMP [CHEM] Timed GLYCOSYLATED HEMOGLOBIN,HGBA1C [CHEM] Routine INR,PT,PROTHROMBIN TIME [COAG] Timed LIPASE, SERUM Routine SEDIMENTATION RATE MANUAL [HEME] Routine 08/23/18 Lunch Clear Liquid Diet [DIET] - Plan Plan:: #Tylenol overdose in setting of suicidal attempt in patient with underlying depression, anxiety non compliant with his medication - Patient is currently on N-acetylcysteine per protocol for Tylenol overdose, Tylenol level trending down . will monitor patient clinically. will consider inpatient vs outpatient psychiatry follow # Transaminitis in setting of tylenol toxicity # Abdominal pain with nausea and vomiting - LFT is trending up which is expected to peek within 36-72 hours after ingestion. will repeat labs this afternoon. continue to monitor clinically - Will continue with prn Zofran. will start IV Protonix # Leukocytosis with no fever - it could be due to dehydration, vs infection. UA on admission was negative for infection. patient denies any cough, lung exam is clear bilateral. will repeat CBC today, will get blood culture, UA and Urine culture. will monitor clinically at this time, will hold on starting antibiotic depending on repeated labs this afternoon # Hypokalemia - will replace it IV today. will repeat labs this afternoon <Patrick Urena - Last Filed: 08/23/18 16:36> - Patient Data Vitals - Most Recent: Last Vital Signs Temp 97.2 F 08/23/18 12:00 Pulse 77 08/23/18 12:00 Resp 18 08/23/18 12:00 BP 116/64 08/23/18 12:00 Pulse Ox 99 08/23/18 12:00 I&O - Last 24 Hours: Intake & Output 08/23/18 08/23/18 08/23/18 06:59 14:59 22:59 Intake Total 545 1564 Output Total 250 Balance 295 1564 Lab Results Last 24 Hours: Laboratory Results - last 24 hr 08/22/18 08/22/18 08/22/18 Range/Units 18:33 18:33 19:15 WBC (4.5-12.0) X10-3/uL RBC (4.30-5.75) x10(6)uL Hgb (11.5-15.5) g/dL Hct (30.0-51.3) % MCV (80-96) fL MCH (27.7-33.6) pg MCHC (32.2-35.4) g/dL RDW (11.5-15.5) % Plt Count (125-369) X10(3)uL MPV (7.4-10.4) fL Add Manual Diff Neutrophils % (Manual) (46-82) % Band Neutrophils % (0-6) % Lymphocytes % (Manual) (13-37) % Monocytes % (Manual) (4-12) % ESR (0-15) mm/hr PT (8.7-11.1) INR (0.89-1.13) Sodium 143 (135-145) mmol/L Potassium 3.1 L D (3.5-5.3) mmol/L Chloride 102 (100-110) mmol/L Carbon Dioxide 23 (21-32) mmol/L BUN 12 (7-18) mg/dL Creatinine 1.0 (0.70-1.30) mg/dL Est Cr Clr Drug Dosing 95.46 mL/min Estimated GFR (MDRD) > 60 (>60) BUN/Creatinine Ratio 12.0 (9-20) Glucose 195 H (80-116) mg/dL Hemoglobin A1c (4.5-6.2) % Calcium 9.9 (8.6-10.2) mg/dL Total Bilirubin 1.3 (0.1-1.3) mg/dL AST 22 D (5-25) IU/L ALT 29 D (12-36) U/L Alkaline Phosphatase 62 (56-112) IU/L Total Protein 7.4 (6.0-8.0) g/dL Albumin 4.1 (3.5-5.2) g/dL Globulin 3.3 g/dL Albumin/Globulin Ratio 1.2 Urine Color Yellow (YELLOW) Urine Appearance Clear (CLEAR) Urine pH 5.0 (5.0-6.5) Ur Specific [place] 1.025 (1.010-1.025) Urine Protein Negative (NEGATIVE) mg/dL Urine Glucose (UA) >1000 H (NEGATIVE) mg/dL Urine Ketones 150 H (NEGATIVE) mg/dL Urine Occult Blood Negative (NEGATIVE) Urine Nitrite Negative (NEGATIVE) Urine Bilirubin Negative (NEGATIVE) Urine Urobilinogen Normal (NEGATIVE) mg/dL Ur Leukocyte Esterase Negative (NEGATIVE) Urine RBC 0-5 (0) Urine WBC 0-5 (0) Ur Squamous Epith Cells Few H (NS,R,O) Urine Bacteria Few H (NS) Urine Opiates Screen (NEGATIVE) Ur Oxycodone Screen (NEGATIVE) Ur Propoxyphene Screen (NEGATIVE) Acetaminophen 80 H* (10-30) ug/mL Ur Barbituates Screen (NEGATIVE) Ur Tricyclics Screen (NEGATIVE) Ur Phencyclidine Scrn (NEGATIVE) Ur Amphetamine Screen (NEGATIVE) Urine MDMA Screen (NEGATIVE) U Benzodiazepines Scrn (NEGATIVE) U Cocaine Metab Screen (NEGATIVE) U Marijuana (THC) Screen (NEGATIVE) Blood Type Gel Antibody Screen Crossmatch 08/22/18 08/23/18 08/23/18 Range/Units 19:15 06:42 06:42 WBC 26.7 H (4.5-12.0) X10-3/uL RBC 5.63 (4.30-5.75) x10(6)uL Hgb 15.9 H (11.5-15.5) g/dL Hct 46.6 (30.0-51.3) % MCV 82.9 (80-96) fL MCH 28.3 (27.7-33.6) pg MCHC 34.1 (32.2-35.4) g/dL RDW 12.4 (11.5-15.5) % Plt Count 360 (125-369) X10(3)uL MPV 8.6 (7.4-10.4) fL Add Manual Diff Yes Neutrophils % (Manual) 84 H (46-82) % Band Neutrophils % (0-6) % Lymphocytes % (Manual) 13 (13-37) % Monocytes % (Manual) 3 L (4-12) % ESR (0-15) mm/hr PT (8.7-11.1) INR (0.89-1.13) Sodium 140 (135-145) mmol/L Potassium 2.9 L (3.5-5.3) mmol/L Chloride 100 (100-110) mmol/L Carbon Dioxide 28 (21-32) mmol/L BUN 10 (7-18) mg/dL Creatinine 0.9 (0.70-1.30) mg/dL Est Cr Clr Drug Dosing 106.07 mL/min Estimated GFR (MDRD) > 60 (>60) BUN/Creatinine Ratio 11.1 (9-20) Glucose 135 H (80-116) mg/dL Hemoglobin A1c (4.5-6.2) % Calcium 9.4 (8.6-10.2) mg/dL Total Bilirubin 1.3 (0.1-1.3) mg/dL AST 68 H D (5-25) IU/L ALT 69 H D (12-36) U/L Alkaline Phosphatase 62 (56-112) IU/L Total Protein 6.7 (6.0-8.0) g/dL Albumin 3.8 (3.5-5.2) g/dL Globulin 2.9 g/dL Albumin/Globulin Ratio 1.3 Urine Color (YELLOW) Urine Appearance (CLEAR) Urine pH (5.0-6.5) Ur Specific [place] (1.010-1.025) Urine Protein (NEGATIVE) mg/dL Urine Glucose (UA) (NEGATIVE) mg/dL Urine Ketones (NEGATIVE) mg/dL Urine Occult Blood (NEGATIVE) Urine Nitrite (NEGATIVE) Urine Bilirubin (NEGATIVE) Urine Urobilinogen (NEGATIVE) mg/dL Ur Leukocyte Esterase (NEGATIVE) Urine RBC (0) Urine WBC (0) Ur Squamous Epith Cells (NS,R,O) Urine Bacteria (NS) Urine Opiates Screen Negative (NEGATIVE) Ur Oxycodone Screen Negative (NEGATIVE) Ur Propoxyphene Screen Negative (NEGATIVE) Acetaminophen 13 (10-30) ug/mL Ur Barbituates Screen Negative (NEGATIVE) Ur Tricyclics Screen Negative (NEGATIVE) Ur Phencyclidine Scrn Negative (NEGATIVE) Ur Amphetamine Screen Negative (NEGATIVE) Urine MDMA Screen Negative (NEGATIVE) U Benzodiazepines Scrn Negative (NEGATIVE) U Cocaine Metab Screen Negative (NEGATIVE) U Marijuana (THC) Screen Negative (NEGATIVE) Blood Type Gel Antibody Screen Crossmatch 08/23/18 08/23/18 08/23/18 Range/Units 06:42 10:25 14:00 WBC 19.1 H (4.5-12.0) X10-3/uL RBC 5.13 (4.30-5.75) x10(6)uL Hgb 14.6 (11.5-15.5) g/dL Hct 42.9 (30.0-51.3) % MCV 83.6 (80-96) fL MCH 28.5 (27.7-33.6) pg MCHC 34.1 (32.2-35.4) g/dL RDW 12.5 (11.5-15.5) % Plt Count 286 (125-369) X10(3)uL MPV 8.7 (7.4-10.4) fL Add Manual Diff Yes Neutrophils % (Manual) 85 H (46-82) % Band Neutrophils % 1 (0-6) % Lymphocytes % (Manual) 10 L (13-37) % Monocytes % (Manual) 4 (4-12) % ESR 1 (0-15) mm/hr PT (8.7-11.1) INR (0.89-1.13) Sodium (135-145) mmol/L Potassium (3.5-5.3) mmol/L Chloride (100-110) mmol/L Carbon Dioxide (21-32) mmol/L BUN (7-18) mg/dL Creatinine (0.70-1.30) mg/dL Est Cr Clr Drug Dosing mL/min Estimated GFR (MDRD) (>60) BUN/Creatinine Ratio (9-20) Glucose (80-116) mg/dL Hemoglobin A1c 4.9 (4.5-6.2) % Calcium (8.6-10.2) mg/dL Total Bilirubin (0.1-1.3) mg/dL AST (5-25) IU/L ALT (12-36) U/L Alkaline Phosphatase (56-112) IU/L Total Protein (6.0-8.0) g/dL Albumin (3.5-5.2) g/dL Globulin g/dL Albumin/Globulin Ratio Urine Color (YELLOW) Urine Appearance (CLEAR) Urine pH (5.0-6.5) Ur Specific [place] (1.010-1.025) Urine Protein (NEGATIVE) mg/dL Urine Glucose (UA) (NEGATIVE) mg/dL Urine Ketones (NEGATIVE) mg/dL Urine Occult Blood (NEGATIVE) Urine Nitrite (NEGATIVE) Urine Bilirubin (NEGATIVE) Urine Urobilinogen (NEGATIVE) mg/dL Ur Leukocyte Esterase (NEGATIVE) Urine RBC (0) Urine WBC (0) Ur Squamous Epith Cells (NS,R,O) Urine Bacteria (NS) Urine Opiates Screen (NEGATIVE) Ur Oxycodone Screen (NEGATIVE) Ur Propoxyphene Screen (NEGATIVE) Acetaminophen (10-30) ug/mL Ur Barbituates Screen (NEGATIVE) Ur Tricyclics Screen (NEGATIVE) Ur Phencyclidine Scrn (NEGATIVE) Ur Amphetamine Screen (NEGATIVE) Urine MDMA Screen (NEGATIVE) U Benzodiazepines Scrn (NEGATIVE) U Cocaine Metab Screen (NEGATIVE) U Marijuana (THC) Screen (NEGATIVE) Blood Type Cancelled Gel Antibody Screen Cancelled Crossmatch See Detail 08/23/18 08/23/18 08/23/18 Range/Units 14:00 14:00 14:55 WBC (4.5-12.0) X10-3/uL RBC (4.30-5.75) x10(6)uL Hgb (11.5-15.5) g/dL Hct (30.0-51.3) % MCV (80-96) fL MCH (27.7-33.6) pg MCHC (32.2-35.4) g/dL RDW (11.5-15.5) % Plt Count (125-369) X10(3)uL MPV (7.4-10.4) fL Add Manual Diff Neutrophils % (Manual) (46-82) % Band Neutrophils % (0-6) % Lymphocytes % (Manual) (13-37) % Monocytes % (Manual) (4-12) % ESR (0-15) mm/hr PT 14.2 H (8.7-11.1) INR 1.47 H (0.89-1.13) Sodium 140 (135-145) mmol/L Potassium 3.2 L (3.5-5.3) mmol/L Chloride 103 (100-110) mmol/L Carbon Dioxide 28 (21-32) mmol/L BUN 8 (7-18) mg/dL Creatinine 0.9 (0.70-1.30) mg/dL Est Cr Clr Drug Dosing 106.07 mL/min Estimated GFR (MDRD) > 60 (>60) BUN/Creatinine Ratio 8.9 L (9-20) Glucose 111 (80-116) mg/dL Hemoglobin A1c (4.5-6.2) % Calcium 8.2 L (8.6-10.2) mg/dL Total Bilirubin 1.1 (0.1-1.3) mg/dL AST 117 H D (5-25) IU/L ALT 138 H D (12-36) U/L Alkaline Phosphatase 56 (56-112) IU/L Total Protein 5.7 L (6.0-8.0) g/dL Albumin 3.3 L (3.5-5.2) g/dL Globulin 2.4 g/dL Albumin/Globulin Ratio 1.4 Urine Color [place] (YELLOW) Urine Appearance Clear (CLEAR) Urine pH 5.0 (5.0-6.5) Ur Specific [place] 1.020 (1.010-1.025) Urine Protein Trace (NEGATIVE) mg/dL Urine Glucose (UA) Normal (NEGATIVE) mg/dL Urine Ketones 50 H (NEGATIVE) mg/dL Urine Occult Blood Negative (NEGATIVE) Urine Nitrite Negative (NEGATIVE) Urine Bilirubin Small H (NEGATIVE) Urine Urobilinogen 1 H (NEGATIVE) mg/dL Ur Leukocyte Esterase Negative (NEGATIVE) Urine RBC (0) Urine WBC (0) Ur Squamous Epith Cells (NS,R,O) Urine Bacteria (NS) Urine Opiates Screen (NEGATIVE) Ur Oxycodone Screen (NEGATIVE) Ur Propoxyphene Screen (NEGATIVE) Acetaminophen (10-30) ug/mL Ur Barbituates Screen (NEGATIVE) Ur Tricyclics Screen (NEGATIVE) Ur Phencyclidine Scrn (NEGATIVE) Ur Amphetamine Screen (NEGATIVE) Urine MDMA Screen (NEGATIVE) U Benzodiazepines Scrn (NEGATIVE) U Cocaine Metab Screen (NEGATIVE) U Marijuana (THC) Screen (NEGATIVE) Blood Type Gel Antibody Screen Crossmatch Med Orders - Current: Current Medications Al Hydroxide/Mg Hydroxide (Mag-Al Susp) 30 ml PO Q2H PRN PRN Reason: Epigastric pain Last Admin: 08/23/18 03:16 Dose: 30 ml Sodium Chloride (Normal Saline) 1,000 mls @ 100 mls/hr IV ASDIRECTED [facility] Last Admin: 08/23/18 15:36 Dose: 100 mls/hr Metoclopramide HCl (Reglan) 10 mg IVPUSH Q8H PRN PRN Reason: Vomiting Last Admin: 08/22/18 19:50 Dose: 10 mg Ondansetron HCl (Zofran) 4 mg IVPUSH Q4H PRN PRN Reason: Nausea/Vomiting Last Admin: 08/22/18 22:54 Dose: 4 mg Pantoprazole Sodium (Protonix Iv) 40 mg IVPUSH Q24H [facility] Last Admin: 08/23/18 11:03 Dose: 40 mg Sodium Chloride (Saline Flush) 10 ml FLUSH ASDIRECTED PRN PRN Reason: IV Use Last Admin: 08/23/18 12:45 Dose: 10 ml Discontinued Medications Acetylcysteine (Acetadote 20%) 3,200 mg IV ONETIME ONE Stop: 08/22/18 14:16 Acetylcysteine (Acetadote 20%) 6,400 mg IV ONETIME ONE Stop: 08/22/18 14:19 Al Hydroxide/Mg Hydroxide (Mag-Al Susp) Confirm Administered Dose 30 ml .ROUTE .STK-MED ONE Stop: 08/23/18 02:25 Last Admin: 08/23/18 04:38 Dose: Not Given Acetaminophen 9,500 mg/ Premix 950 mls @ 400 mls/hr IV NOW ONE Stop: 08/22/18 13:57 Last Admin: 08/22/18 13:47 Dose: Not Given Acetylcysteine 9,500 mg/ (Dextrose/Water) 247.5 mls @ 247.5 mls/hr IV ONETIME ONE Stop: 08/22/18 15:59 Last Admin: 08/22/18 15:12 Dose: 201 mls/hr Acetylcysteine 3,200 mg/ (Dextrose/Water) 516 mls @ 129 mls/hr IV ONETIME ONE Stop: 08/22/18 19:59 Last Admin: 08/22/18 16:26 Dose: 129 mls/hr Acetylcysteine 6,400 mg/ (Dextrose/Water) 1,032 mls @ 64.5 mls/hr IV ONETIME ONE Stop: 08/23/18 11:59 Last Admin: 08/22/18 20:40 Dose: 64.5 mls/hr Potassium Chloride/Sodium Chloride (Normal Saline With 20 Meq Kcl) 1,000 mls @ 75 mls/hr IV Q13H [facility] Last Admin: 08/23/18 13:27 Dose: Not Given Potassium Chloride/Sodium Chloride (Normal Saline With 20 Meq Kcl) 1,000 mls @ 250 mls/hr IV ONETIME ONE Stop: 08/23/18 14:52 Last Admin: 08/23/18 11:09 Dose: 250 mls/hr Lorazepam (Ativan) Confirm Administered Dose 2 mg .ROUTE .STK-MED ONE Stop: 08/22/18 23:16 Last Admin: 08/23/18 00:51 Dose: Not Given Lorazepam (Ativan) 0.5 mg IVPUSH ONETIME ONE Stop: 08/22/18 23:05 Last Admin: 08/23/18 00:30 Dose: 0.5 mg Ondansetron HCl (Zofran Odt) 4 mg PO ONETIME ONE Stop: 08/22/18 13:07 Last Admin: 08/22/18 13:08 Dose: 4 mg Potassium Chloride (Klor-Con M20) 40 meq PO ONETIME ONE Stop: 08/22/18 21:01 Last Admin: 08/22/18 22:54 Dose: Not Given Potassium Chloride (Klor-Con M20) 40 meq PO ONETIME ONE Stop: 08/23/18 09:01 Last Admin: 08/23/18 11:12 Dose: Not Given - Problem List & Annotations (1) Mild intellectual disability Status: Acute Current Visit: Yes (2) Bipolar 1 disorder SNOMED Code(s): 211337359 Code(s): F31.9 - BIPOLAR DISORDER, UNSPECIFIED Status: Acute Current Visit: Yes (3) Acetaminophen toxicity SNOMED Code(s): 81975218 Code(s): T39.1X1A - POISONING BY 4-AMINOPHENOL DERIVATIVES, ACCIDENTAL, INIT Status: Acute Current Visit: Yes Qualifiers: Encounter type: initial encounter (4) Complicated grief Status: Acute Current Visit: Yes (5) Major depression SNOMED Code(s): 558819404 Code(s): F32.9 - MAJOR DEPRESSIVE DISORDER, SINGLE EPISODE, UNSPECIFIED Status: Acute Current Visit: Yes Qualifiers: Major depression recurrence: recurrent Active/Remission status: currently active (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 Code(s): Q89.8 - OTHER SPECIFIED CONGENITAL MALFORMATIONS Status: Acute Current Visit: Yes (7) Suicide attempt by acetaminophen overdose SNOMED Code(s): 881514691 Code(s): T39.1X2A - POISONING BY 4-AMINOPHENOL DERIVATIVES, SELF-HARM, INIT Status: Acute Current Visit: Yes Qualifiers: Encounter type: initial encounter Qualified Code(s): T39.1X2A - Poisoning by 4-Aminophenol derivatives, intentional self-harm, initial encounter - My Orders Last 24 Hours: My Active Orders 08/22/18 18:21 Head wo Cont [CT] Routine 08/22/18 18:22 Metoclopramide [Reglan] 10 mg IVPUSH Q8H PRN 08/22/18 18:24 Resuscitation Status Routine 08/22/18 18:30 Sodium Chloride 0.9% [Normal Saline] 1,000 ml IV ASDIRECTED 08/23/18 15:30 Admission Status [Patient Status] [ADT] Routine - Plan Plan:: I saw patient personally,and I agree with the findings,assessment and plan as outlined above
[2018-08-23] MEDS ORDERED: NS + KCl 20mEq/L 1,000 ML IV ONE (10:55)
[2018-08-23] MEDS: Pantoprazole 40 MG Vial IVPUSH SCH (11:03)
[2018-08-23] MEDS: Sodium Chloride 0.9% 10 ML Syringe FLUSH PRN ×2 (11:04→12:45)
[2018-08-23 11:52] LABS: HEMOGLOBIN A1C 4.9 % (4.5-6.2)
[2018-08-23] MEDS: Sodium Chloride 0.9% 1,000 ML IV SCH (15:36)
[2018-08-23] MEDS ORDERED: Acetylcysteine 20% 200 MG/ML 30 ML SDV IV ONE (17:23)
[2018-08-23] MEDS ORDERED: DEXTROSE 5% IV ONE ×2 (18:00)
[2018-08-23] MEDS ORDERED: WATER IV ONE ×2 (18:00)
[2018-08-23] MEDS ORDERED: ACETYLCYSTEINE IV ONE ×2 (18:00)
[2018-08-23] MEDS ORDERED: Cyclobenzaprine 10 MG Tab PO ONE (20:02)
[2018-08-24] MEDS: Aluminum Hydroxide/Magnesium Hydroxide Susp 30 ML Cup PO PRN ×2 (00:30→15:24)
[2018-08-24] MEDS: Ondansetron 4 MG/2 ML SDV IVPUSH PRN (00:33)
[2018-08-24] MEDS: Sodium Chloride 0.9% 1,000 ML IV SCH (01:48)
[2018-08-24] MEDS ORDERED: Zolpidem 10 MG Tab PO ONE (01:53)
[2018-08-24 07:31] LABS: ACETAMINOPHEN < 2 ug/mL (10-30)
--- NOTE | 2018-08-24 08:36 | PCM.PN ---
- General Info Date of Service: 08/24/18 Subjective Update: Patient reports feeling the same. he still complain of Nausea no vomiting. he is on liquid diet and advance as tolerated. No BM yet since admission. Abdominal pain improving. - Review of Systems General: Reports: Weakness HEENT: Reports: No Symptoms, Headaches Pulmonary: Reports: No Symptoms Cardiovascular: Reports: No Symptoms Gastrointestinal: Reports: Abdominal Pain, Constipation Genitourinary: Reports: No Symptoms Skin: Reports: No Symptoms Neurological: Reports: No Symptoms - Patient Data Vitals - Most Recent: Last Vital Signs Temp 36.9 C 08/24/18 00:39 Pulse 85 08/24/18 00:39 Resp 17 08/24/18 00:39 BP 128/80 08/24/18 00:39 Pulse Ox 98 08/24/18 00:39 Weight - Most Recent: 60.827 kg I&O - Last 24 Hours: Intake & Output 08/23/18 08/24/18 08/24/18 22:59 06:59 14:59 Intake Total 985 Output Total 400 Balance 985 -400 Lab Results Last 24 Hours: Laboratory Results - last 24 hr 08/23/18 08/23/18 08/23/18 Range/Units 06:42 10:25 14:00 WBC 19.1 H (4.5-12.0) X10-3/uL RBC 5.13 (4.30-5.75) x10(6)uL Hgb 14.6 (11.5-15.5) g/dL Hct 42.9 (30.0-51.3) % MCV 83.6 (80-96) fL MCH 28.5 (27.7-33.6) pg MCHC 34.1 (32.2-35.4) g/dL RDW 12.5 (11.5-15.5) % Plt Count 286 (125-369) X10(3)uL MPV 8.7 (7.4-10.4) fL Add Manual Diff Yes Neutrophils % (Manual) 85 H (46-82) % Band Neutrophils % 1 (0-6) % Lymphocytes % (Manual) 10 L (13-37) % Monocytes % (Manual) 4 (4-12) % ESR 1 (0-15) mm/hr PT (8.7-11.1) INR (0.89-1.13) Sodium (135-145) mmol/L Potassium (3.5-5.3) mmol/L Chloride (100-110) mmol/L Carbon Dioxide (21-32) mmol/L BUN (7-18) mg/dL Creatinine (0.70-1.30) mg/dL Est Cr Clr Drug Dosing mL/min Estimated GFR (MDRD) (>60) BUN/Creatinine Ratio (9-20) Glucose (80-116) mg/dL Hemoglobin A1c 4.9 (4.5-6.2) % Calcium (8.6-10.2) mg/dL Total Bilirubin (0.1-1.3) mg/dL AST (5-25) IU/L ALT (12-36) U/L Alkaline Phosphatase (56-112) IU/L Total Protein (6.0-8.0) g/dL Albumin (3.5-5.2) g/dL Globulin g/dL Albumin/Globulin Ratio Lipase (13-78) U/L Urine Color (YELLOW) Urine Appearance (CLEAR) Urine pH (5.0-6.5) Ur Specific [place] (1.010-1.025) Urine Protein (NEGATIVE) mg/dL Urine Glucose (UA) (NEGATIVE) mg/dL Urine Ketones (NEGATIVE) mg/dL Urine Occult Blood (NEGATIVE) Urine Nitrite (NEGATIVE) Urine Bilirubin (NEGATIVE) Urine Urobilinogen (NEGATIVE) mg/dL Ur Leukocyte Esterase (NEGATIVE) Acetaminophen (10-30) ug/mL Blood Type Cancelled Gel Antibody Screen Cancelled Crossmatch See Detail 08/23/18 08/23/18 08/23/18 Range/Units 14:00 14:00 14:00 WBC (4.5-12.0) X10-3/uL RBC (4.30-5.75) x10(6)uL Hgb (11.5-15.5) g/dL Hct (30.0-51.3) % MCV (80-96) fL MCH (27.7-33.6) pg MCHC (32.2-35.4) g/dL RDW (11.5-15.5) % Plt Count (125-369) X10(3)uL MPV (7.4-10.4) fL Add Manual Diff Neutrophils % (Manual) (46-82) % Band Neutrophils % (0-6) % Lymphocytes % (Manual) (13-37) % Monocytes % (Manual) (4-12) % ESR (0-15) mm/hr PT 14.2 H (8.7-11.1) INR 1.47 H (0.89-1.13) Sodium 140 (135-145) mmol/L Potassium 3.2 L (3.5-5.3) mmol/L Chloride 103 (100-110) mmol/L Carbon Dioxide 28 (21-32) mmol/L BUN 8 (7-18) mg/dL Creatinine 0.9 (0.70-1.30) mg/dL Est Cr Clr Drug Dosing 106.07 mL/min Estimated GFR (MDRD) > 60 (>60) BUN/Creatinine Ratio 8.9 L (9-20) Glucose 111 (80-116) mg/dL Hemoglobin A1c (4.5-6.2) % Calcium 8.2 L (8.6-10.2) mg/dL Total Bilirubin 1.1 (0.1-1.3) mg/dL AST 117 H D (5-25) IU/L ALT 138 H D (12-36) U/L Alkaline Phosphatase 56 (56-112) IU/L Total Protein 5.7 L (6.0-8.0) g/dL Albumin 3.3 L (3.5-5.2) g/dL Globulin 2.4 g/dL Albumin/Globulin Ratio 1.4 Lipase 33 (13-78) U/L Urine Color (YELLOW) Urine Appearance (CLEAR) Urine pH (5.0-6.5) Ur Specific [place] (1.010-1.025) Urine Protein (NEGATIVE) mg/dL Urine Glucose (UA) (NEGATIVE) mg/dL Urine Ketones (NEGATIVE) mg/dL Urine Occult Blood (NEGATIVE) Urine Nitrite (NEGATIVE) Urine Bilirubin (NEGATIVE) Urine Urobilinogen (NEGATIVE) mg/dL Ur Leukocyte Esterase (NEGATIVE) Acetaminophen (10-30) ug/mL Blood Type Gel Antibody Screen Crossmatch 08/23/18 08/23/18 08/24/18 Range/Units 14:00 14:55 06:55 WBC 15.9 H (4.5-12.0) X10-3/uL RBC 4.61 (4.30-5.75) x10(6)uL Hgb 13.2 (11.5-15.5) g/dL Hct 38.5 (30.0-51.3) % MCV 83.6 (80-96) fL MCH 28.5 (27.7-33.6) pg MCHC 34.1 (32.2-35.4) g/dL RDW 12.6 (11.5-15.5) % Plt Count 192 (125-369) X10(3)uL MPV 8.8 (7.4-10.4) fL Add Manual Diff Yes Neutrophils % (Manual) 80 (46-82) % Band Neutrophils % 2 (0-6) % Lymphocytes % (Manual) 13 (13-37) % Monocytes % (Manual) 5 (4-12) % ESR (0-15) mm/hr PT (8.7-11.1) INR (0.89-1.13) Sodium (135-145) mmol/L Potassium (3.5-5.3) mmol/L Chloride (100-110) mmol/L Carbon Dioxide (21-32) mmol/L BUN (7-18) mg/dL Creatinine (0.70-1.30) mg/dL Est Cr Clr Drug Dosing mL/min Estimated GFR (MDRD) (>60) BUN/Creatinine Ratio (9-20) Glucose (80-116) mg/dL Hemoglobin A1c (4.5-6.2) % Calcium (8.6-10.2) mg/dL Total Bilirubin (0.1-1.3) mg/dL AST (5-25) IU/L ALT (12-36) U/L Alkaline Phosphatase (56-112) IU/L Total Protein (6.0-8.0) g/dL Albumin (3.5-5.2) g/dL Globulin g/dL Albumin/Globulin Ratio Lipase (13-78) U/L Urine Color [place] (YELLOW) Urine Appearance Clear (CLEAR) Urine pH 5.0 (5.0-6.5) Ur Specific [place] 1.020 (1.010-1.025) Urine Protein Trace (NEGATIVE) mg/dL Urine Glucose (UA) Normal (NEGATIVE) mg/dL Urine Ketones 50 H (NEGATIVE) mg/dL Urine Occult Blood Negative (NEGATIVE) Urine Nitrite Negative (NEGATIVE) Urine Bilirubin Small H (NEGATIVE) Urine Urobilinogen 1 H (NEGATIVE) mg/dL Ur Leukocyte Esterase Negative (NEGATIVE) Acetaminophen 5 L (10-30) ug/mL Blood Type Gel Antibody Screen Crossmatch 08/24/18 08/24/18 Range/Units 06:55 06:55 WBC (4.5-12.0) X10-3/uL RBC (4.30-5.75) x10(6)uL Hgb (11.5-15.5) g/dL Hct (30.0-51.3) % MCV (80-96) fL MCH (27.7-33.6) pg MCHC (32.2-35.4) g/dL RDW (11.5-15.5) % Plt Count (125-369) X10(3)uL MPV (7.4-10.4) fL Add Manual Diff Neutrophils % (Manual) (46-82) % Band Neutrophils % (0-6) % Lymphocytes % (Manual) (13-37) % Monocytes % (Manual) (4-12) % ESR (0-15) mm/hr PT 13.0 H (8.7-11.1) INR 1.34 H (0.89-1.13) Sodium 139 (135-145) mmol/L Potassium 3.1 L (3.5-5.3) mmol/L Chloride 105 (100-110) mmol/L Carbon Dioxide 29 (21-32) mmol/L BUN 3 L (7-18) mg/dL Creatinine 0.7 (0.70-1.30) mg/dL Est Cr Clr Drug Dosing 136.38 mL/min Estimated GFR (MDRD) > 60 (>60) BUN/Creatinine Ratio 4.3 L (9-20) Glucose 109 (80-116) mg/dL Hemoglobin A1c (4.5-6.2) % Calcium 8.0 L (8.6-10.2) mg/dL Total Bilirubin 1.3 (0.1-1.3) mg/dL AST 186 H* D (5-25) IU/L ALT 295 H* D (12-36) U/L Alkaline Phosphatase 52 L (56-112) IU/L Total Protein 5.1 L (6.0-8.0) g/dL Albumin 2.8 L (3.5-5.2) g/dL Globulin 2.3 g/dL Albumin/Globulin Ratio 1.2 Lipase (13-78) U/L Urine Color (YELLOW) Urine Appearance (CLEAR) Urine pH (5.0-6.5) Ur Specific [place] (1.010-1.025) Urine Protein (NEGATIVE) mg/dL Urine Glucose (UA) (NEGATIVE) mg/dL Urine Ketones (NEGATIVE) mg/dL Urine Occult Blood (NEGATIVE) Urine Nitrite (NEGATIVE) Urine Bilirubin (NEGATIVE) Urine Urobilinogen (NEGATIVE) mg/dL Ur Leukocyte Esterase (NEGATIVE) Acetaminophen < 2 L (10-30) ug/mL Blood Type Gel Antibody Screen Crossmatch Med Orders - Current: Current Medications Al Hydroxide/Mg Hydroxide (Mag-Al Susp) 30 ml PO Q2H PRN PRN Reason: Epigastric pain Last Admin: 08/24/18 00:30 Dose: 30 ml Sodium Chloride (Normal Saline) 1,000 mls @ 100 mls/hr IV ASDIRECTED [facility] Last Admin: 08/24/18 01:48 Dose: 100 mls/hr Acetylcysteine 6,400 mg/ (Dextrose/Water) 1,032 mls @ 64.5 mls/hr IV ONETIME ONE Stop: 08/24/18 09:59 Last Admin: 08/23/18 18:03 Dose: 64.5 mls/hr Metoclopramide HCl (Reglan) 10 mg IVPUSH Q8H PRN PRN Reason: Vomiting Last Admin: 08/22/18 19:50 Dose: 10 mg Ondansetron HCl (Zofran) 4 mg IVPUSH Q4H PRN PRN Reason: Nausea/Vomiting Last Admin: 08/24/18 00:33 Dose: 4 mg Pantoprazole Sodium (Protonix Iv) 40 mg IVPUSH Q24H [facility] Last Admin: 08/23/18 11:03 Dose: 40 mg Sodium Chloride (Saline Flush) 10 ml FLUSH ASDIRECTED PRN PRN Reason: IV Use Last Admin: 08/23/18 12:45 Dose: 10 ml Discontinued Medications Acetylcysteine (Acetadote 20%) 3,200 mg IV ONETIME ONE Stop: 08/22/18 14:16 Acetylcysteine (Acetadote 20%) 6,400 mg IV ONETIME ONE Stop: 08/22/18 14:19 Al Hydroxide/Mg Hydroxide (Mag-Al Susp) Confirm Administered Dose 30 ml .ROUTE .STK-MED ONE Stop: 08/23/18 02:25 Last Admin: 08/23/18 04:38 Dose: Not Given Cyclobenzaprine HCl (Flexeril) 10 mg PO ONETIME ONE Stop: 08/23/18 20:03 Last Admin: 08/23/18 20:25 Dose: 10 mg Acetaminophen 9,500 mg/ Premix 950 mls @ 400 mls/hr IV NOW ONE Stop: 08/22/18 13:57 Last Admin: 08/22/18 13:47 Dose: Not Given Acetylcysteine 9,500 mg/ (Dextrose/Water) 247.5 mls @ 247.5 mls/hr IV ONETIME ONE Stop: 08/22/18 15:59 Last Admin: 08/22/18 15:12 Dose: 201 mls/hr Acetylcysteine 3,200 mg/ (Dextrose/Water) 516 mls @ 129 mls/hr IV ONETIME ONE Stop: 08/22/18 19:59 Last Admin: 08/22/18 16:26 Dose: 129 mls/hr Acetylcysteine 6,400 mg/ (Dextrose/Water) 1,032 mls @ 64.5 mls/hr IV ONETIME ONE Stop: 08/23/18 11:59 Last Admin: 08/22/18 20:40 Dose: 64.5 mls/hr Potassium Chloride/Sodium Chloride (Normal Saline With 20 Meq Kcl) 1,000 mls @ 75 mls/hr IV Q13H [facility] Last Admin: 08/23/18 13:27 Dose: Not Given Potassium Chloride/Sodium Chloride (Normal Saline With 20 Meq Kcl) 1,000 mls @ 250 mls/hr IV ONETIME ONE Stop: 08/23/18 14:52 Last Admin: 08/23/18 11:09 Dose: 250 mls/hr Lorazepam (Ativan) Confirm Administered Dose 2 mg .ROUTE .STK-MED ONE Stop: 08/22/18 23:16 Last Admin: 08/23/18 00:51 Dose: Not Given Lorazepam (Ativan) 0.5 mg IVPUSH ONETIME ONE Stop: 08/22/18 23:05 Last Admin: 08/23/18 00:30 Dose: 0.5 mg Ondansetron HCl (Zofran Odt) 4 mg PO ONETIME ONE Stop: 08/22/18 13:07 Last Admin: 08/22/18 13:08 Dose: 4 mg Potassium Chloride (Klor-Con M20) 40 meq PO ONETIME ONE Stop: 08/22/18 21:01 Last Admin: 08/22/18 22:54 Dose: Not Given Potassium Chloride (Klor-Con M20) 40 meq PO ONETIME ONE Stop: 08/23/18 09:01 Last Admin: 08/23/18 11:12 Dose: Not Given Zolpidem Tartrate (Ambien) 10 mg PO ONETIME ONE Stop: 08/24/18 01:54 Last Admin: 08/24/18 02:01 Dose: 10 mg - Exam General: Alert, Oriented HEENT: Pupils Equal Neck: Supple Lungs: Clear to Auscultation, Normal Respiratory Effort Cardiovascular: Regular Rate, Regular Rhythm GI/Abdominal Exam: Normal Bowel Sounds, Soft, Non-Tender Extremities: Normal Inspection, Normal Range of Motion, Non-Tender, No Pedal Edema Skin: Warm, Dry, Intact Neurological: No New Focal Deficit Psy/Mental Status: Alert, Normal Affect, Normal Mood - Problem List & Annotations (1) Bipolar 1 disorder SNOMED Code(s): 897756286 Code(s): F31.9 - BIPOLAR DISORDER, UNSPECIFIED Status: Acute Current Visit: Yes (2) Transaminitis SNOMED Code(s): 839296587, 036975896 Code(s): R74.0 - NONSPEC ELEV OF LEVELS OF TRANSAMNS & LACTIC ACID DEHYDRGNSE Status: Acute Current Visit: Yes (3) Acetaminophen toxicity SNOMED Code(s): 96742167 Code(s): T39.1X1A - POISONING BY 4-AMINOPHENOL DERIVATIVES, ACCIDENTAL, INIT Status: Acute Current Visit: Yes Qualifiers: Encounter type: initial encounter (4) Major depression SNOMED Code(s): 686259660 Code(s): F32.9 - MAJOR DEPRESSIVE DISORDER, SINGLE EPISODE, UNSPECIFIED Status: Acute Current Visit: Yes Qualifiers: Major depression recurrence: recurrent Active/Remission status: currently active (5) Suicide attempt by acetaminophen overdose SNOMED Code(s): 011527518 Code(s): T39.1X2A - POISONING BY 4-AMINOPHENOL DERIVATIVES, SELF-HARM, INIT Status: Acute Current Visit: Yes Qualifiers: Encounter type: initial encounter Qualified Code(s): T39.1X2A - Poisoning by 4-Aminophenol derivatives, intentional self-harm, initial encounter (6) Leukocytosis SNOMED Code(s): 159116537, 022238355 Code(s): D72.829 - ELEVATED WHITE BLOOD CELL COUNT, UNSPECIFIED Status: Acute Current Visit: Yes - Problem List Review Problem List Initiated/Reviewed/Updated: Yes - My Orders Last 24 Hours: My Active Orders 08/23/18 10:00 Pantoprazole [ProTONIX IV] 40 mg IVPUSH Q24H 08/23/18 14:55 CULTURE URINE [RM] Routine 08/23/18 Lunch Clear Liquid Diet [DIET] - Plan Plan:: # Transaminitis in setting of Tylenol overdose - LFT trending up, which is still expected in Tylenol OD. contacted poison control and recommended to restart N-acetylcysteine - will continue to monitor closely # Leukocytosis- trending down, still clinically stable.
[2018-08-24] MEDS: Pantoprazole 40 MG Vial IVPUSH SCH (11:00)
[2018-08-24] MEDS: Sodium Chloride 0.9% 10 ML Syringe FLUSH PRN (11:32)
[2018-08-24] MEDS ORDERED: Acetylcysteine 20% 200 MG/ML 30 ML SDV IV ONE (14:46)
[2018-08-24] MEDS ORDERED: WATER IV ONE ×2 (16:00)
[2018-08-24] MEDS ORDERED: DEXTROSE 5% IV ONE ×2 (16:00)
[2018-08-24] MEDS ORDERED: ACETYLCYSTEINE IV ONE ×2 (16:00)
[2018-08-24] MEDS ORDERED: Ketorolac 60 MG/2 ML SDV IM ONE (23:23)
[2018-08-25] MEDS: Sodium Chloride 0.9% 1,000 ML IV SCH (07:38)
--- NOTE | 2018-08-25 08:57 | PCM.PN ---
- General Info Date of Service: 08/25/18 Admission Dx/Problem (Free Text): Patient is doing well today. he is tolerating diet. no nausea or vomiting. no overnight event. still no BM since admission. Patient is ready to go home. he agreed to follow up with therapist and PCP to manage his depression. He is also planning to get gym membership so he stay active. - Review of Systems General: Reports: No Symptoms HEENT: Reports: No Symptoms Pulmonary: Reports: No Symptoms Cardiovascular: Reports: No Symptoms, Palpitations Gastrointestinal: Reports: Constipation Genitourinary: Reports: No Symptoms Musculoskeletal: Reports: No Symptoms Skin: Reports: No Symptoms Neurological: Reports: No Symptoms Psychiatric: Reports: No Symptoms - Patient Data Vitals - Most Recent: Last Vital Signs Temp 36.4 C 08/25/18 07:52 Pulse 73 08/25/18 07:52 Resp 16 08/25/18 07:52 BP 113/68 08/25/18 07:52 Pulse Ox 100 08/25/18 07:52 Weight - Most Recent: 60.827 kg I&O - Last 24 Hours: Intake & Output 08/24/18 08/25/18 08/25/18 22:59 06:59 14:59 Intake Total 388 513 Balance 388 513 Lab Results Last 24 Hours: Laboratory Results - last 24 hr 08/25/18 Range/Units 06:00 Sodium 142 (135-145) mmol/L Potassium 3.4 L (3.5-5.3) mmol/L Chloride 104 (100-110) mmol/L Carbon Dioxide 31 (21-32) mmol/L BUN 2 L (7-18) mg/dL Creatinine 0.7 (0.70-1.30) mg/dL Est Cr Clr Drug Dosing 136.38 mL/min Estimated GFR (MDRD) > 60 (>60) BUN/Creatinine Ratio 2.9 L (9-20) Glucose 93 (80-116) mg/dL Calcium 8.6 (8.6-10.2) mg/dL Total Bilirubin 0.9 (0.1-1.3) mg/dL AST 89 H D (5-25) IU/L ALT 310 H* (12-36) U/L Alkaline Phosphatase 53 L (56-112) IU/L Total Protein 5.6 L (6.0-8.0) g/dL Albumin 2.8 L (3.5-5.2) g/dL Globulin 2.8 g/dL Albumin/Globulin Ratio 1.0 Hugh Results Last 24 Hours: Microbiology 08/23/18 14:55 Urine Culture - Preliminary Urine, Clean Catch MIXED POSITIVE MERLINE DAY 1 Med Orders - Current: Current Medications Al Hydroxide/Mg Hydroxide (Mag-Al Susp) 30 ml PO Q2H PRN PRN Reason: Epigastric pain Last Admin: 08/24/18 15:24 Dose: 30 ml Sodium Chloride (Normal Saline) 1,000 mls @ 100 mls/hr IV ASDIRECTED [facility] Last Admin: 08/25/18 07:38 Dose: 100 mls/hr Metoclopramide HCl (Reglan) 10 mg IVPUSH Q8H PRN PRN Reason: Vomiting Last Admin: 08/22/18 19:50 Dose: 10 mg Ondansetron HCl (Zofran) 4 mg IVPUSH Q4H PRN PRN Reason: Nausea/Vomiting Last Admin: 08/24/18 00:33 Dose: 4 mg Pantoprazole Sodium (Protonix Iv) 40 mg IVPUSH Q24H [facility] Last Admin: 08/24/18 11:00 Dose: 40 mg Potassium Chloride (Klor-Con M20) 20 meq PO DAILY [facility] Sodium Chloride (Saline Flush) 10 ml FLUSH ASDIRECTED PRN PRN Reason: IV Use Last Admin: 08/24/18 11:32 Dose: 10 ml Discontinued Medications Acetylcysteine (Acetadote 20%) 3,200 mg IV ONETIME ONE Stop: 08/22/18 14:16 Acetylcysteine (Acetadote 20%) 6,400 mg IV ONETIME ONE Stop: 08/22/18 14:19 Al Hydroxide/Mg Hydroxide (Mag-Al Susp) Confirm Administered Dose 30 ml .ROUTE .STK-MED ONE Stop: 08/23/18 02:25 Last Admin: 08/23/18 04:38 Dose: Not Given Cyclobenzaprine HCl (Flexeril) 10 mg PO ONETIME ONE Stop: 08/23/18 20:03 Last Admin: 08/23/18 20:25 Dose: 10 mg Acetaminophen 9,500 mg/ Premix 950 mls @ 400 mls/hr IV NOW ONE Stop: 08/22/18 13:57 Last Admin: 08/22/18 13:47 Dose: Not Given Acetylcysteine 9,500 mg/ (Dextrose/Water) 247.5 mls @ 247.5 mls/hr IV ONETIME ONE Stop: 08/22/18 15:59 Last Admin: 08/22/18 15:12 Dose: 201 mls/hr Acetylcysteine 3,200 mg/ (Dextrose/Water) 516 mls @ 129 mls/hr IV ONETIME ONE Stop: 08/22/18 19:59 Last Admin: 08/22/18 16:26 Dose: 129 mls/hr Acetylcysteine 6,400 mg/ (Dextrose/Water) 1,032 mls @ 64.5 mls/hr IV ONETIME ONE Stop: 08/23/18 11:59 Last Admin: 08/22/18 20:40 Dose: 64.5 mls/hr Potassium Chloride/Sodium Chloride (Normal Saline With 20 Meq Kcl) 1,000 mls @ 75 mls/hr IV Q13H [facility] Last Admin: 08/23/18 13:27 Dose: Not Given Potassium Chloride/Sodium Chloride (Normal Saline With 20 Meq Kcl) 1,000 mls @ 250 mls/hr IV ONETIME ONE Stop: 08/23/18 14:52 Last Admin: 08/23/18 11:09 Dose: 250 mls/hr Acetylcysteine 6,400 mg/ (Dextrose/Water) 1,032 mls @ 64.5 mls/hr IV ONETIME ONE Stop: 08/24/18 09:59 Last Admin: 08/23/18 18:03 Dose: 64.5 mls/hr Acetylcysteine 6,400 mg/ (Dextrose/Water) 1,032 mls @ 64.5 mls/hr IV ONETIME ONE Stop: 08/25/18 07:59 Last Admin: 08/24/18 16:07 Dose: 64.5 mls/hr Ketorolac Tromethamine (Toradol) 60 mg IM ONETIME ONE Stop: 08/24/18 23:24 Last Admin: 08/24/18 23:45 Dose: 60 mg Lorazepam (Ativan) Confirm Administered Dose 2 mg .ROUTE .STK-MED ONE Stop: 08/22/18 23:16 Last Admin: 08/23/18 00:51 Dose: Not Given Lorazepam (Ativan) 0.5 mg IVPUSH ONETIME ONE Stop: 08/22/18 23:05 Last Admin: 08/23/18 00:30 Dose: 0.5 mg Ondansetron HCl (Zofran Odt) 4 mg PO ONETIME ONE Stop: 08/22/18 13:07 Last Admin: 08/22/18 13:08 Dose: 4 mg Potassium Chloride (Klor-Con M20) 40 meq PO ONETIME ONE Stop: 08/22/18 21:01 Last Admin: 08/22/18 22:54 Dose: Not Given Potassium Chloride (Klor-Con M20) 40 meq PO ONETIME ONE Stop: 08/23/18 09:01 Last Admin: 08/23/18 11:12 Dose: Not Given Zolpidem Tartrate (Ambien) 10 mg PO ONETIME ONE Stop: 08/24/18 01:54 Last Admin: 08/24/18 02:01 Dose: 10 mg - Exam General: Alert, Oriented, Cooperative HEENT: Pupils Equal, Pupils Reactive Neck: Supple Lungs: Clear to Auscultation, Normal Respiratory Effort Cardiovascular: Regular Rate, Regular Rhythm GI/Abdominal Exam: Normal Bowel Sounds, Soft, Non-Tender (Male) Exam: No Hernia Back Exam: Normal Inspection, Full Range of Motion Extremities: Normal Inspection, Normal Range of Motion - Problem List & Annotations (1) Bipolar 1 disorder SNOMED Code(s): 307764033 Code(s): F31.9 - BIPOLAR DISORDER, UNSPECIFIED Status: Acute Current Visit: Yes (2) Transaminitis SNOMED Code(s): 390931603, 639659601 Code(s): R74.0 - NONSPEC ELEV OF LEVELS OF TRANSAMNS & LACTIC ACID DEHYDRGNSE Status: Acute Current Visit: Yes (3) Acetaminophen toxicity SNOMED Code(s): 40518230 Code(s): T39.1X1A - POISONING BY 4-AMINOPHENOL DERIVATIVES, ACCIDENTAL, INIT Status: Acute Current Visit: Yes Qualifiers: Encounter type: initial encounter (4) Major depression SNOMED Code(s): 106690133 Code(s): F32.9 - MAJOR DEPRESSIVE DISORDER, SINGLE EPISODE, UNSPECIFIED Status: Acute Current Visit: Yes Qualifiers: Major depression recurrence: recurrent Active/Remission status: currently active (5) Suicide attempt by acetaminophen overdose SNOMED Code(s): 741337863 Code(s): T39.1X2A - POISONING BY 4-AMINOPHENOL DERIVATIVES, SELF-HARM, INIT Status: Acute Current Visit: Yes Qualifiers: Encounter type: initial encounter Qualified Code(s): T39.1X2A - Poisoning by 4-Aminophenol derivatives, intentional self-harm, initial encounter (6) Leukocytosis SNOMED Code(s): 901276283, 187686681 Code(s): D72.829 - ELEVATED WHITE BLOOD CELL COUNT, UNSPECIFIED Status: Acute Current Visit: Yes - Problem List Review Problem List Initiated/Reviewed/Updated: Yes - My Orders Last 24 Hours: My Active Orders 08/24/18 Lunch Regular Diet [DIET] 08/25/18 05:11 AMMONIA, PLASMA Routine 08/25/18 09:00 Potassium Chloride [Klor-Con M20] 20 meq PO DAILY 08/26/18 05:11 COMPREHENSIVE METABOLIC PN,CMP [CHEM] AM - Plan Plan:: # Transaminitis in setting of Tylenol overdose - AST trending down. ALT is mildly elevated from yesterday. Phone call to poison control, they are ok with the result given that AST trending down, and it 's expected for ALT to take little bit longer. no further recommendation from them. - Patient is asymptomatic. will discharge patient today. follow up with PCP with repeated labs tomorrow CMP, PT/INR.
[2018-08-25] MEDS ORDERED: Potassium Chloride 20 MEQ Tab.ER PO SCH (09:00)
--- NOTE | 2018-08-25 09:13 | PCM.DCSUM1 ---
Discharge Summary - Hospital Course Free Text/Narrative:: Billy Jackson is a 27 years old male with PMHx of Bipolar affective disorder, depression, mild intellectual disability who admitted to the hospital on 08/22 after taking 20 tabs 500 mg of Tylenol, and 10 tabs of 3mg melatonin on 08/21 with intention to see his father who a year ago. During hospitalization patient received n-acetylcysteine pre protocol. Patient liver enzymes were trending up in setting of Tylenol toxicity. Patient also received Zofran for nausea, and Protonix for heartburn. after few days of hospitalization , on 08/25 his AST start to trend down, his ALT is still mildly elevated. Poison control is aware of his labs with no further recommendation. Patient discharge home in medically stable condition. Repeat labs CMP, PT/INR tomorrow as an outpatient. follow up with PCP for further management of his mental problems and medication adjustment, as per patient he was not taking any of his psychiatric medication for the last few weeks prior to admission. Patient will need to follow up with psychologist. patient to get OTC PPI for GERD and also stool softener for constipation. patient denies suicidal thoughts or plan upon discharge, he agreed to follow up closely with his PCP and therapist. Diagnosis: Stroke: No - Discharge Data Discharge Date: 08/25/18 Discharge Disposition: Home, Self-Care 01 Condition: Good - Discharge Diagnosis/Problem(s) (1) Bipolar 1 disorder SNOMED Code(s): 358923812 ICD Code: F31.9 - BIPOLAR DISORDER, UNSPECIFIED Status: Acute Current Visit: Yes (2) Transaminitis SNOMED Code(s): 758859914, 821138505 ICD Code: R74.0 - NONSPEC ELEV OF LEVELS OF TRANSAMNS & LACTIC ACID DEHYDRGNSE Status: Acute Current Visit: Yes (3) Acetaminophen toxicity SNOMED Code(s): 14054422 ICD Code: T39.1X1A - POISONING BY 4-AMINOPHENOL DERIVATIVES, ACCIDENTAL, INIT Status: Acute Current Visit: Yes Qualifiers: Encounter type: initial encounter (4) Major depression SNOMED Code(s): 117229359 ICD Code: F32.9 - MAJOR DEPRESSIVE DISORDER, SINGLE EPISODE, UNSPECIFIED Status: Acute Current Visit: Yes Qualifiers: Major depression recurrence: recurrent Active/Remission status: currently active (5) Suicide attempt by acetaminophen overdose SNOMED Code(s): 819412593 ICD Code: T39.1X2A - POISONING BY 4-AMINOPHENOL DERIVATIVES, SELF-HARM, INIT Status: Acute Current Visit: Yes Qualifiers: Encounter type: initial encounter Qualified Code(s): T39.1X2A - Poisoning by 4-Aminophenol derivatives, intentional self-harm, initial encounter (6) Leukocytosis SNOMED Code(s): 988293726, 758657147 ICD Code: D72.829 - ELEVATED WHITE BLOOD CELL COUNT, UNSPECIFIED Status: Acute Current Visit: Yes - Discharge Plan *PRESCRIPTION DRUG MONITORING PROGRAM REVIEWED*: Not Applicable *COPY OF PRESCRIPTION DRUG MONITORING REPORT IN PATIENT TAMMI: Not Applicable Home Medications: Home Meds Benztropine [Cogentin] 0.5 mg PO BEDTIME 08/22/18 [History] Benztropine [Cogentin] 1 mg PO DAILY 08/22/18 [History] OLANZapine [Olanzapine] 10 mg PO DAILY 08/22/18 [History] Pantoprazole [ProTONIX] 40 mg PO DAILY 08/22/18 [History] hydrOXYzine pamoate [Vistaril] 25 mg PO Q8H PRN 08/22/18 [History] lamoTRIgine 200 mg PO DAILY 08/22/18 [History] Forms: ED Department Discharge Referrals: Dylan Euceda MD [Primary Care Provider] - - Discharge Summary/Plan Comment DC Time >30 min.: Yes Discharge Summary/Plan Comment: Discharge home with family member. Repeat CMP, PT/INR tomorrow. Ordered in. Follow up with PCP for further management for psychiatric problems and medications adjacent Follow up with therapist Take OTC stool softener and Protonix - Review of Systems General: Reports: No Symptoms HEENT: Reports: No Symptoms Pulmonary: Reports: No Symptoms Cardiovascular: Reports: No Symptoms Gastrointestinal: Reports: Constipation, Other (Heartburn) Genitourinary: Reports: No Symptoms Musculoskeletal: Reports: No Symptoms Psychiatric: Reports: Depression, Mood Lability - Patient Data Vitals - Most Recent: Last Vital Signs Temp 36.4 C 08/25/18 07:52 Pulse 73 08/25/18 07:52 Resp 16 08/25/18 07:52 BP 113/68 08/25/18 07:52 Pulse Ox 100 08/25/18 07:52 Weight - Most Recent: 60.827 kg I&O - Last 24 hours: Intake & Output 08/24/18 08/25/18 08/25/18 22:59 06:59 14:59 Intake Total 388 513 Balance 388 513 Lab Results - Last 24 hrs: Laboratory Results - last 24 hr 08/25/18 Range/Units 06:00 Sodium 142 (135-145) mmol/L Potassium 3.4 L (3.5-5.3) mmol/L Chloride 104 (100-110) mmol/L Carbon Dioxide 31 (21-32) mmol/L BUN 2 L (7-18) mg/dL Creatinine 0.7 (0.70-1.30) mg/dL Est Cr Clr Drug Dosing 136.38 mL/min Estimated GFR (MDRD) > 60 (>60) BUN/Creatinine Ratio 2.9 L (9-20) Glucose 93 (80-116) mg/dL Calcium 8.6 (8.6-10.2) mg/dL Total Bilirubin 0.9 (0.1-1.3) mg/dL AST 89 H D (5-25) IU/L ALT 310 H* (12-36) U/L Alkaline Phosphatase 53 L (56-112) IU/L Total Protein 5.6 L (6.0-8.0) g/dL Albumin 2.8 L (3.5-5.2) g/dL Globulin 2.8 g/dL Albumin/Globulin Ratio 1.0 ELVIN Results - Last 24 hrs: Microbiology 08/23/18 14:55 Urine Culture - Preliminary Urine, Clean Catch MIXED POSITIVE MERLINE DAY 1 Med Orders - Current: Current Medications Al Hydroxide/Mg Hydroxide (Mag-Al Susp) 30 ml PO Q2H PRN PRN Reason: Epigastric pain Last Admin: 08/24/18 15:24 Dose: 30 ml Sodium Chloride (Normal Saline) 1,000 mls @ 100 mls/hr IV ASDIRECTED RAGINI Last Admin: 08/25/18 07:38 Dose: 100 mls/hr Metoclopramide HCl (Reglan) 10 mg IVPUSH Q8H PRN PRN Reason: Vomiting Last Admin: 08/22/18 19:50 Dose: 10 mg Ondansetron HCl (Zofran) 4 mg IVPUSH Q4H PRN PRN Reason: Nausea/Vomiting Last Admin: 08/24/18 00:33 Dose: 4 mg Pantoprazole Sodium (Protonix Iv) 40 mg IVPUSH Q24H RAGINI Last Admin: 08/24/18 11:00 Dose: 40 mg Potassium Chloride (Klor-Con M20) 20 meq PO DAILY RAGINI Sodium Chloride (Saline Flush) 10 ml FLUSH ASDIRECTED PRN PRN Reason: IV Use Last Admin: 08/24/18 11:32 Dose: 10 ml Discontinued Medications Acetylcysteine (Acetadote 20%) 3,200 mg IV ONETIME ONE Stop: 08/22/18 14:16 Acetylcysteine (Acetadote 20%) 6,400 mg IV ONETIME ONE Stop: 08/22/18 14:19 Al Hydroxide/Mg Hydroxide (Mag-Al Susp) Confirm Administered Dose 30 ml .ROUTE .STK-MED ONE Stop: 08/23/18 02:25 Last Admin: 08/23/18 04:38 Dose: Not Given Cyclobenzaprine HCl (Flexeril) 10 mg PO ONETIME ONE Stop: 08/23/18 20:03 Last Admin: 08/23/18 20:25 Dose: 10 mg Acetaminophen 9,500 mg/ Premix 950 mls @ 400 mls/hr IV NOW ONE Stop: 08/22/18 13:57 Last Admin: 08/22/18 13:47 Dose: Not Given Acetylcysteine 9,500 mg/ (Dextrose/Water) 247.5 mls @ 247.5 mls/hr IV ONETIME ONE Stop: 08/22/18 15:59 Last Admin: 08/22/18 15:12 Dose: 201 mls/hr Acetylcysteine 3,200 mg/ (Dextrose/Water) 516 mls @ 129 mls/hr IV ONETIME ONE Stop: 08/22/18 19:59 Last Admin: 08/22/18 16:26 Dose: 129 mls/hr Acetylcysteine 6,400 mg/ (Dextrose/Water) 1,032 mls @ 64.5 mls/hr IV ONETIME ONE Stop: 08/23/18 11:59 Last Admin: 08/22/18 20:40 Dose: 64.5 mls/hr Potassium Chloride/Sodium Chloride (Normal Saline With 20 Meq Kcl) 1,000 mls @ 75 mls/hr IV Q13H [facility] Last Admin: 08/23/18 13:27 Dose: Not Given Potassium Chloride/Sodium Chloride (Normal Saline With 20 Meq Kcl) 1,000 mls @ 250 mls/hr IV ONETIME ONE Stop: 08/23/18 14:52 Last Admin: 08/23/18 11:09 Dose: 250 mls/hr Acetylcysteine 6,400 mg/ (Dextrose/Water) 1,032 mls @ 64.5 mls/hr IV ONETIME ONE Stop: 08/24/18 09:59 Last Admin: 08/23/18 18:03 Dose: 64.5 mls/hr Acetylcysteine 6,400 mg/ (Dextrose/Water) 1,032 mls @ 64.5 mls/hr IV ONETIME ONE Stop: 08/25/18 07:59 Last Admin: 08/24/18 16:07 Dose: 64.5 mls/hr Ketorolac Tromethamine (Toradol) 60 mg IM ONETIME ONE Stop: 08/24/18 23:24 Last Admin: 08/24/18 23:45 Dose: 60 mg Lorazepam (Ativan) Confirm Administered Dose 2 mg .ROUTE .STK-MED ONE Stop: 08/22/18 23:16 Last Admin: 08/23/18 00:51 Dose: Not Given Lorazepam (Ativan) 0.5 mg IVPUSH ONETIME ONE Stop: 08/22/18 23:05 Last Admin: 08/23/18 00:30 Dose: 0.5 mg Ondansetron HCl (Zofran Odt) 4 mg PO ONETIME ONE Stop: 08/22/18 13:07 Last Admin: 08/22/18 13:08 Dose: 4 mg Potassium Chloride (Klor-Con M20) 40 meq PO ONETIME ONE Stop: 08/22/18 21:01 Last Admin: 08/22/18 22:54 Dose: Not Given Potassium Chloride (Klor-Con M20) 40 meq PO ONETIME ONE Stop: 08/23/18 09:01 Last Admin: 08/23/18 11:12 Dose: Not Given Zolpidem Tartrate (Ambien) 10 mg PO ONETIME ONE Stop: 08/24/18 01:54 Last Admin: 08/24/18 02:01 Dose: 10 mg - Exam General: Reports: Alert, Oriented HEENT: Reports: Pupils Equal, Pupils Reactive Neck: Reports: Supple Lungs: Reports: Clear to Auscultation, Normal Respiratory Effort Cardiovascular: Reports: Regular Rate, Regular Rhythm GI/Abdominal Exam: Normal Bowel Sounds, Soft, Non-Tender Extremities: Normal Inspection, Normal Range of Motion, No Pedal Edema Psy/Mental Status: Reports: Alert, Normal Affect
[2018-08-25] MEDS: Pantoprazole 40 MG Vial IVPUSH SCH (09:22)
== END 2018-08-25 10:55 | disposition home or self-care (01) | DRG 918 ==
LOC: FB.ED 11:38 → UNDOADMOB 14:57 → FB.ICU 14:57 → FB.MS 08-23 10:00 → INTOOBSV 08-23 10:00 → FB.ICU 08-23 10:00 → OBSVTOIN 08-23 10:00 → FB.MS 08-23 15:30
PROVIDERS: ADMIT Emergency Medicine; ATTEND Family Medicine
DX: T39.1X2A Poisoning by 4-Aminophenol derivatives, intentional self-harm, initial encounter (principal); Q89.8 Other specified congenital malformations; T38.892A Poisoning by other hormones and synthetic substitutes, intentional self-harm, initial encounter; T43.506A Underdosing of unspecified antipsychotics and neuroleptics, initial encounter; Y92.009 Unspecified place in unspecified non-institutional (private) residence as the place of occurrence of the external cause; F43.21 Adjustment disorder with depressed mood; F41.9 Anxiety disorder, unspecified; F31.9 Bipolar disorder, unspecified; F70 Mild intellectual disabilities; F43.23 Adjustment disorder with mixed anxiety and depressed mood; R11.10 Vomiting, unspecified; H54.7 Unspecified visual loss; R74.0 Nonspecific elevation of levels of transaminase and lactic acid dehydrogenase [LDH]; D72.829 Elevated white blood cell count, unspecified; E87.6 Hypokalemia; K21.9 Gastro-esophageal reflux disease without esophagitis; K59.00 Constipation, unspecified
CPT/HCPCS: 36415 ×2; 70450; 80053 ×3; 80305; 81001; 83036; 84443; 85025 ×2; 85610; 93005; 96365; 96366; 96375; 96376 ×2; 99285; A9270 ×2; G0378 ×2; G0480 ×5; J0132 ×3; J2060 ×2; J2405 ×2; J2765; J7060 ×2; 81003; 82140; 83690; 85651; 87086; C9113; J1885; J3480; J7030

== ENCOUNTER 2020-03-11 19:14 | Emergency (ER) | payer MEDICARE, MEDICAID ==
[2020-03-11] MEDS ORDERED: Clindamycin HCl 150 MG Cap PO ONE (20:04)
--- NOTE | 2020-03-11 20:15 | EDM.PDOC ---
ED HPI GENERAL MEDICAL PROBLEM - General Chief Complaint: ENT Problem Stated Complaint: SICK Time Seen by Provider: 03/11/20 20:00 Source of Information: Reports: Patient History Limitations: Reports: No Limitations - History of Present Illness INITIAL COMMENTS - FREE TEXT/NARRATIVE: Billy comes into [facility] ED with L facial swelling and pain involving the upper maxilla over the past 48 hours. He is aware of a damaged tooth that was recently chipped, followed by pain, tenderness, and progressive swelling overlying the L cheek. He has not seen a DDS. He has taken NSAIDs for pain managment. Left Upper Tooth/Teeth Pain Score (Numeric/FACES): 10 - Related Data Allergies Allergy/AdvReac Type Severity Reaction Status Date / Time No Known Allergies Allergy Verified 08/22/18 12:43 Home Meds: Home Meds Benztropine [Cogentin] 0.5 mg PO BEDTIME 08/22/18 [History] Benztropine [Cogentin] 1 mg PO DAILY 08/22/18 [History] OLANZapine [Olanzapine] 10 mg PO DAILY 08/22/18 [History] Pantoprazole [ProTONIX] 40 mg PO DAILY 08/22/18 [History] hydrOXYzine pamoate [Vistaril] 25 mg PO Q8H PRN 08/22/18 [History] lamoTRIgine 200 mg PO DAILY 08/22/18 [History] FLUoxetine HCl [Fluoxetine] 40 mg PO DAILY 03/11/20 [History] LORazepam [Lorazepam] 1 mg PO DAILY 03/11/20 [History] clindamycin HCL [Cleocin HCl] 450 mg PO Q8HR #30 capsule 03/11/20 [Rx] traZODone 150 mg PO DAILY 03/11/20 [History] Past Medical History HEENT History: Reports: Impaired Vision Psychiatric History: Reports: Depression - Past Surgical History HEENT Surgical History: Reports: Adenoidectomy, Tonsillectomy, Other (See Below) Other HEENT Surgeries/Procedures: Pharyngeal flap when a young child. Social & Family History - Family History Family Medical History: Noncontributory - Caffeine Use Caffeine Use: Reports: Soda, Tea ED ROS ENT - Review of Systems Review Of Systems: Comprehensive ROS is negative, except as noted in HPI. ED EXAM, ENT - Physical Exam Exam: See Below Exam Limited By: No Limitations General Appearance: Alert, WD/WN, Mild Distress Eye Exam: Bilateral Eye: EOMI, Normal Inspection, PERRL Ears: Normal External Exam Nose: Normal Inspection Mouth/Throat: Dental Abcess (#10), Dental Pain, Dental Tenderness Head: Facial Swelling (overlying L malar surfaces, with erythema), Facial Tenderness Neck: Normal Inspection, Supple, Non-Tender Respiratory/Chest: Lungs Clear Cardiovascular: Regular Rate, Rhythm, No Murmur Back: Normal Inspection Extremities: Normal Inspection Neurological: Alert, Oriented, CN II-XII Intact Psychiatric: Normal Affect, Normal Mood Skin: Warm, Dry, Intact Lymphatic: No Adenopathy Course - Vital Signs Text/Narrative:: Following assessment, I administered Clindamycin 450 mg po. - Orders/Labs/Meds Meds: Medications Discontinued Medications Generic Name Dose Route Start Last Admin Trade Name Freq PRN Reason Stop Dose Admin Clindamycin HCl 450 mg 03/11/20 20:04 Cleocin PO 03/11/20 20:05 ONETIME ONE Departure - Departure Time of Disposition: 20:15 Disposition: Home, Self-Care 01 Condition: Fair Clinical Impression: Dental abscess - Discharge Information *PRESCRIPTION DRUG MONITORING PROGRAM REVIEWED*: Not Applicable *COPY OF PRESCRIPTION DRUG MONITORING REPORT IN PATIENT TAMMI: Not Applicable Prescriptions: clindamycin HCL [Cleocin HCl] 450 mg PO Q8HR #30 capsule Referrals: PCP,None [Primary Care Provider] - Forms: ED Department Discharge - Problem List & Annotations (1) Dental abscess SNOMED Code(s): 256392755 Code(s): K04.7 - PERIAPICAL ABSCESS WITHOUT SINUS Status: Acute Current Visit: Yes Annotation/Comment:: I dispensed Clindamycin 150 mg cap taken 3 caps every 8 hours, NSAIDs for pain, and advised DDS consult this week for some surgery. - Problem List Review Problem List Initiated/Reviewed/Updated: Yes - Assessment/Plan Plan: Follow up with DDS this week.
== END 2020-03-11 20:25 | disposition home or self-care (01) ==
LOC: FB.ED 19:14
DX: K04.7 Periapical abscess without sinus (principal); F32.9 Major depressive disorder, single episode, unspecified; Z79.899 Other long term (current) drug therapy
CPT/HCPCS: 99282; 99283; A9270-GY

== ENCOUNTER 2021-06-11 13:18 | Emergency (ER) | payer MEDICARE, MEDICAID ==
--- NOTE | 2021-06-11 13:41 | EDM.PDOC ---
ED HPI GENERAL MEDICAL PROBLEM - General Stated Complaint: chest pain Time Seen by Provider: 06/11/21 13:35 Source of Information: Reports: Patient History Limitations: Reports: No Limitations - History of Present Illness INITIAL COMMENTS - FREE TEXT/NARRATIVE: 30-year-old male who reports onset of central chest pain on Thursday afternoon. It was a sharp pain that is worse with movement and with breathing. There has been no nausea. The pain does not radiate. He has had no back, neck, jaw or arm pain associated with this. He has been a constant pain that he rates as a 10/10. He has had no trauma to the area. He really has had no fever. There has been no cough or nasal congestion. He has had no loss of taste or smell sense. He also denies any heavy lifting or any excessive physical activity. He has had methamphetamine abuse in the past but reports he has been sober for the past 3 months. No abdominal pain. He has been eating and drinking normally. No fevers or chills. He was seen at the [facility] in [place] and had a chest x-ray that was performed and showed no acute disease. He also had a rapid Covid test that was negative. In addition, an EKG was performed over there and really sh owed no acute abnormality. The patient presents to the emergency department via private vehicle with his mother. There are no other associated signs or symptoms. There are no other modifying factors. Onset: Other (06/08/2021) Duration: Constant Location: Reports: Chest Quality: Reports: Sharp Severity: Severe Improves with: Reports: Rest Worsens with: Reports: Breathing, Other (Palpation), Movement Context: Reports: Other (As above.) Associated Symptoms: Reports: No Other Symptoms (Except as above.) Treatments I&C TECHNICIAN: Reports: Other (see below) (Nothing.) Chest Pain Score (Numeric/FACES): 10 - Related Data Allergies Allergy/AdvReac Type Severity Reaction Status Date / Time No Known Allergies Allergy Verified 06/11/21 20:43 Home Meds: Home Meds Benztropine [Cogentin] 0.5 mg PO BEDTIME 08/22/18 [History] Benztropine [Cogentin] 1 mg PO DAILY 08/22/18 [History] OLANZapine [Olanzapine] 10 mg PO DAILY 08/22/18 [History] Pantoprazole [ProTONIX] 40 mg PO DAILY 08/22/18 [History] hydrOXYzine pamoate [Vistaril] 25 mg PO Q8H PRN 08/22/18 [History] lamoTRIgine 200 mg PO DAILY 08/22/18 [History] FLUoxetine HCl [Fluoxetine] 40 mg PO DAILY 03/11/20 [History] LORazepam [Lorazepam] 1 mg PO DAILY 03/11/20 [History] clindamycin HCL [Cleocin HCl] 450 mg PO Q8HR #30 capsule 03/11/20 [Rx] traZODone 150 mg PO DAILY 03/11/20 [History] Azithromycin [Zithromax] 500 mg PO DAILY #4 tab 06/11/21 [Rx] predniSONE [Prednisone] 1 dose PO DAILY 9 Days #20 tablet 06/11/21 [Rx] Past Medical History HEENT History: Reports: Impaired Vision 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 Denies: Fever, Chills HEENT: Denies: Throat Pain, Vision Change Respiratory: Reports: Pleuritic Chest Pain. Denies: Shortness of Breath, Cough Cardiovascular: Reports: Chest Pain. Denies: Palpitations GI/Abdominal: Denies: Abdominal Pain, Nausea, Vomiting : Denies: Dysuria, Hematuria Musculoskeletal: Denies: Neck Pain, Back Pain Skin: Denies: Diaphoresis, Rash Neurological: Denies: Dizziness, Headache Hematologic/Lymphatic: Denies: Easy Bleeding, Easy Bruising ED EXAM, GENERAL - Physical Exam Exam: See Below Exam Limited By: No Limitations General Appearance: Alert, Moderate Distress (Appears in some discomfort but otherwise nontoxic.), Obese Eye Exam: Bilateral Eye: EOMI, Normal Inspection (Sclerae are anicteric), PERRL Ears: Normal External Exam, Hearing Grossly Normal Ear Exam: Bilateral Ear: Auricle Normal Nose: Normal Inspection, Normal Mucosa, No Blood Throat/Mouth: Normal Oropharynx, Normal Voice, No Airway Compromise, Other (Poor dentition.) Head: Atraumatic, Normocephalic Neck: Normal Inspection, Supple, Non-Tender, Full Range of Motion Respiratory/Chest: No Respiratory Distress, Lungs Clear, Normal Breath Sounds, No Accessory Muscle Use, Other (Tender to palpation along central chest and the costrochondral junctions..) Cardiovascular: Normal Peripheral Pulses, Regular Rate, Rhythm, No Murmur Peripheral Pulses: 2+: Radial (L), Radial (R) GI/Abdominal: Normal Bowel Sounds, Soft, Non-Tender, No Mass Back Exam: Normal Inspection Extremities: Normal Inspection, Normal Range of Motion, Non-Tender, No Pedal Edema, Normal Capillary Refill Neurological: Alert, Oriented, CN II-XII Intact, Normal Cognition, No Motor/Sensory Deficits Psychiatric: Normal Affect Skin Exam: Warm, Dry, Intact, Normal Color, No Rash #1 Interpretation EKG Date: 06/11/21 Time: 13:41 Rhythm: NSR Rate (Beats/Min): 80 [place]: Normal P-Wave: Present QRS: Normal ST-T: Normal QT: Normal Comparison: No Change (No change from EKG performed on 08/22/2018 and also no change from an EKG that was performed at the [facility] in [place] today.) Course - Vital Signs Last Recorded V/S: Last Vital Signs Temp 36.6 C 06/11/21 13:18 Pulse 78 06/11/21 19:20 Resp 18 06/11/21 19:20 BP 112/75 06/11/21 19:20 Pulse Ox 99 06/11/21 19:20 - Orders/Labs/Meds Labs: Laboratory Tests 06/11/21 06/11/21 06/11/21 Range/Units 13:58 13:58 13:58 WBC 14.3 H (3.2-10.1) x10-3/uL RBC 4.79 (3.90-5.90) x10(6)uL Hgb 12.8 L (12.9-17.7) g/dL Hct 39.1 (38.3-50.1) % MCV 81.7 (80.8-98.7) fL MCH 26.8 L (27.0-33.3) pg MCHC 32.8 (28.7-35.3) g/dL RDW 13.4 (12.4-15.0) % Plt Count 296 (117-477) x10(3)uL MPV 8.1 (6.7-11.0) fL Neut % (Auto) 84.1 H (40.3-71.8) % Lymph % (Auto) 8.3 L (15.8-45.3) % [place] % (Auto) 6.5 (5.5-15.2) % Eos % (Auto) 0.8 (0.1-6.8) % Baso % (Auto) 0.3 (0.3-3.8) % Neut # (Auto) 12.0 H (1.7-6.9) x10-3/uL Lymph # (Auto) 1.2 (0.5-4.5) x10-3/uL [place] # (Auto) 0.9 (0.0-1.2) x10-3/uL Eos # (Auto) 0.1 (0.0-0.6) x10-3/uL Baso # (Auto) 0.0 (0.0-0.3) x10-3/uL D-Dimer, Quantitative 1.11 H (0.0-0.59) mg/LFEU Sodium 138 (135-145) mmol/L Potassium 3.5 (3.5-5.3) mmol/L Chloride 102 (100-110) mmol/L Carbon Dioxide 28 (21-32) mmol/L BUN 20 H D (7-18) mg/dL Creatinine 0.9 (0.70-1.30) mg/dL Est Cr Clr Drug Dosing 84.31 mL/min Estimated GFR (MDRD) > 60 (>60) BUN/Creatinine Ratio 22.2 H (9-20) Glucose 118 H (80-116) mg/dL Calcium 8.9 (8.6-10.2) mg/dL Magnesium 2.2 (1.8-2.5) mg/dL Total Bilirubin 0.8 (0.1-1.3) mg/dL AST 47 H D (5-25) IU/L ALT 49 H D (12-36) U/L Alkaline Phosphatase 99 (56-112) IU/L Troponin I (4.0-60.3) pg/mL Total Protein 7.3 (6.0-8.0) g/dL Albumin 3.3 L (3.5-5.2) g/dL Globulin 4.0 g/dL Albumin/Globulin Ratio 0.8 06/11/21 Range/Units 13:58 WBC (3.2-10.1) x10-3/uL RBC (3.90-5.90) x10(6)uL Hgb (12.9-17.7) g/dL Hct (38.3-50.1) % MCV (80.8-98.7) fL MCH (27.0-33.3) pg MCHC (28.7-35.3) g/dL RDW (12.4-15.0) % Plt Count (117-477) x10(3)uL MPV (6.7-11.0) fL Neut % (Auto) (40.3-71.8) % Lymph % (Auto) (15.8-45.3) % Waller % (Auto) (5.5-15.2) % Eos % (Auto) (0.1-6.8) % Baso % (Auto) (0.3-3.8) % Neut # (Auto) (1.7-6.9) x10-3/uL Lymph # (Auto) (0.5-4.5) x10-3/uL [place] # (Auto) (0.0-1.2) x10-3/uL Eos # (Auto) (0.0-0.6) x10-3/uL Baso # (Auto) (0.0-0.3) x10-3/uL D-Dimer, Quantitative (0.0-0.59) mg/LFEU Sodium (135-145) mmol/L Potassium (3.5-5.3) mmol/L Chloride (100-110) mmol/L Carbon Dioxide (21-32) mmol/L BUN (7-18) mg/dL Creatinine (0.70-1.30) mg/dL Est Cr Clr Drug Dosing mL/min Estimated GFR (MDRD) (>60) BUN/Creatinine Ratio (9-20) Glucose (80-116) mg/dL Calcium (8.6-10.2) mg/dL Magnesium (1.8-2.5) mg/dL Total Bilirubin (0.1-1.3) mg/dL AST (5-25) IU/L ALT (12-36) U/L Alkaline Phosphatase (56-112) IU/L Troponin I < 4.0 L (4.0-60.3) pg/mL Total Protein (6.0-8.0) g/dL Albumin (3.5-5.2) g/dL Globulin g/dL Albumin/Globulin Ratio Meds: Medications Discontinued Medications Generic Name Dose Route Start Last Admin Trade Name Freq PRN Reason Stop Dose Admin Azithromycin 500 mg 06/11/21 18:00 06/11/21 18:13 Azithromycin 500 Mg Tab PO 06/11/21 18:01 500 mg ONETIME ONE Administration Ceftriaxone Sodium 1 gm 06/11/21 18:02 06/11/21 18:14 Ceftriaxone 1 Gm Vial IVPUSH 06/11/21 18:03 1 gm ONETIME ONE Administration Sodium Chloride 500 mls @ 999 mls/hr 06/11/21 15:09 06/11/21 15:30 Normal Saline IV 06/11/21 15:39 999 mls/hr .BOLUS ONE Administration Iopamidol 75 ml 06/11/21 15:29 06/11/21 15:55 Iopamidol 755 Mg/Ml 75 Ml Bottle IV 06/11/21 15:30 75 ml ASDIRECTED ONE Administration Ketorolac Tromethamine 30 mg 06/11/21 15:09 06/11/21 15:38 Ketorolac 30 Mg/Ml Sdv IVPUSH 06/11/21 15:10 30 mg ONETIME ONE Administration Prednisone 60 mg 06/11/21 18:01 06/11/21 18:14 Prednisone 20 Mg Tab PO 06/11/21 18:02 60 mg ONETIME ONE Administration Sodium Chloride 10 ml 06/11/21 15:08 Sodium Chloride 0.9% 10 Ml Syringe FLUSH ASDIRECTED PRN Keep Vein Open - Radiology Interpretation Free Text/Narrative:: CTA of the chest shows no sign of pulmonary embolism. There are very faint, nonspecific, hazy interstitial infiltrates scattered throughout both lungs. The re is also pleural cyst in the lateral left mid lung and the posterior right lung base. This was per the [facility] radiologist. - Re-Assessments/Exams Free Text/Narrative Re-Assessment/Exam: 06/11/21 15:00: White blood cell count is 14.3. Hemoglobin is 12.8. Platelet count is normal. Sodium is 138. Potassium is 3.5. Bicarbonate was 28. BUN is 20 creatinine 0.9. Glucose is 118. AST is 47 and ALT is 49. The troponin is normal. D-dimer is 1.11. With the patient's chest pain and the elevated d-dimer, the patient will need a CTA of his chest to further assess for pulmonary embolism. 06/11/21 17:00: CTA of the chest shows no evidence of pulmonary emboli. He does have bilateral patchy infiltrates that are consistent with Covid pneumonia. The patient's rapid test was positive. We will be sending a PCR test. Because of the appearance of infection. I will we'll place the patient on Zithromax for 5 day course with 500 mg a day for 5 days. I will also place him on a tapering dose of prednisone over 10 days. This could also be costochondritis as he has pain along the costochondral junctions bilaterally and it is reproducible with movement and with palpation. This tapering dose of prednisone will help that as well. Troponin Tylenol as needed for his pain. In addition I will give him Rocephin 1 g IV in the emergency department. Precautions and reasons for return to the emergency department were discussed with the patient and with his mother while the patient was in the emergency department and were detailed in the patient's discharge instructions. Departure - Departure Time of Disposition: 17:47 Disposition: Home, Self-Care 01 Condition: Good Clinical Impression: Chest pain, musculoskeletal, Costochondritis, acute Bilateral pneumonia Qualifiers: Pneumonia type: due to unspecified organism Lung location: unspecified part of lung Qualified Code(s): J18.9 - Pneumonia, unspecified organism Prescriptions: predniSONE [Prednisone] 1 dose PO DAILY 9 Days #20 tablet Azithromycin [Zithromax] 500 mg PO DAILY #4 tab Instructions: Costochondritis, [id number], Chest Wall Pain, [id number], Community-Acquired Pneumonia, Adult, [id number] Referrals: PCP,None [Primary Care Provider] - Forms: ED Return to Work/School Form Additional Instructions: All of your blood tests were reassuringly normal except for the elevated blood clot screening tests. Your EKG showed no evidence of a problem with your heart. Your heart enzyme test was normal and with you having ongoing pain for the past 4 days, a negative heart enzyme test and a normal EKG rule out any heart attack or heart related issues. The CT scan of your chest showed no evidence of blood clots in your lungs. He did have bilateral pneumonia. As we discussed, this could represent scarring from your previous Covid infections. It could also represent a new Covid infection that was missed on the rapid test. It could also represent a pneumonia from another source. I am placing you on antibiotics (Zithromax) to treat for this possible bacterial pneumonia. I feel that your pain is most probably due to an inflammation of the cartilage connecting your ribs to your breastbone. This is called costochondritis. I am also placing you on prednisone over a 10 day tapering dose to treat for the costochondritis. The prescriptions for prednisone and Zithromax were electronically sent to your pharmacy. You were given your first dose of both of these tonight in the emergency department. You can take ibuprofen 400-600 mg by mouth every 6-8 hours as needed for pain. You should not take the Celebrex if you are taking the i buprofen. You can also take Tylenol 650 mg by mouth every 6 hours as needed for pain. Increase your fluid intake. Follow-up with your primary doctor in 1-2 weeks for recheck or sooner as needed. Back to the emergency department for coughing up blood, worse breathing, unrelenting vomiting, severe weakness or any other concerning signs or symptoms.
[2021-06-11] MEDS ORDERED: Sodium Chloride 0.9% 10 ML Syringe FLUSH PRN (15:08)
[2021-06-11] MEDS ORDERED: Sodium Chloride 0.9% 500 ML IV ONE (15:09)
[2021-06-11] MEDS ORDERED: Ketorolac 30 MG/ML SDV IVPUSH ONE (15:09)
[2021-06-11] MEDS ORDERED: Iopamidol 755 Mg/ML 75 ML Bottle IV ONE (15:29)
[2021-06-11] MEDS ORDERED: Azithromycin 500 MG Tab PO ONE (18:00)
[2021-06-11] MEDS ORDERED: predniSONE 20 MG Tab PO ONE (18:01)
[2021-06-11] MEDS ORDERED: cefTRIAXone 1 GM Vial IVPUSH ONE (18:02)
[2021-06-13 16:39] LABS: CORNONAVIRUS (COVID19) CSH-NRL Negative (Negative)
== END 2021-06-11 19:20 | disposition home or self-care (01) ==
LOC: FB.ED 13:18
DX: J18.9 Pneumonia, unspecified organism (principal); M94.0 Chondrocostal junction syndrome [Tietze]; Z72.0 Tobacco use
CPT/HCPCS: 36415; 71275; 80053; 83735; 84484; 85025; 85379; 93005; 96374; 96375; 99285-25; A9270-GY; J0696; J1885; J7040; J7512; Q9967; U0003

== ENCOUNTER 2021-09-22 19:03 | Emergency (ER) | payer MEDICARE, MEDICAID ==
[2021-09-22] MEDS ORDERED: Gabapentin 300 MG Cap PO ONE (19:33)
[2021-09-22] MEDS ORDERED: Ondansetron 4 MG Tab.DIS ONE (19:54)
[2021-09-22 19:56] LABS: ACETAMINOPHEN < 2 ug/mL (<2)
[2021-09-22] MEDS: Ondansetron 4 MG Tab.DIS PO PRN (19:57)
[2021-09-22] MEDS ORDERED: Ketorolac 30 MG/ML SDV IM ONE (20:09)
[2021-09-22] MEDS ORDERED: Iopamidol 755 Mg/ML 75 ML Bottle IV ONE (21:35)
[2021-09-22] MEDS ORDERED: Magnesium Citrate Solution 296 ML Bottle PO ONE (23:03)
[2021-09-22] MEDS ORDERED: Sodium Chloride 0.9% 1,000 ML IV ONE (23:05)
[2021-09-22] MEDS ORDERED: cefTRIAXone 2 GM Vial IVPUSH ONE (23:07)
[2021-09-22] MEDS ORDERED: Acetaminophen 500 MG Tab PO ONE (23:26)
[2021-09-23] MEDS: Ondansetron 4 MG Tab.DIS PO PRN ×2 (00:18→00:46)
[2021-09-23] MEDS ORDERED: metroNIDAZOLE/Normal Saline 500 MG in Premix Bag 1 BAG IV ONE (02:18)
== END 2021-09-23 03:50 | disposition home or self-care (01) ==
LOC: FB.ED 19:03
DX: J90 Pleural effusion, not elsewhere classified (principal); M94.0 Chondrocostal junction syndrome [Tietze]; D72.829 Elevated white blood cell count, unspecified; Q89.8 Other specified congenital malformations; K56.41 Fecal impaction; F32.A Depression, unspecified; F17.210 Nicotine dependence, cigarettes, uncomplicated; Z20.822 Contact with and (suspected) exposure to COVID-19; Z79.899 Other long term (current) drug therapy
CPT/HCPCS: 36415; 71045; 74178; 80053; 80143; 80179; 80307; 81001; 84484; 85025; 85379; 87040; 93005; 93010; 96365; 96372; 96375; 99283; 99285-25; A9270-GY; J0696; J1885; J3490; J7030; Q0162; Q9967; U0002

== ENCOUNTER 2022-06-21 04:19 | Emergency (ER) | payer MEDICARE, MEDICAID ==
[2022-06-21 05:54] LABS: CORONAVIRUS COVID-19 NAA NEGATIVE (NEGATIVE)
[2022-06-21 06:45] LABS: ESTIMATED GFR 117 mL/min (>60)
[2022-06-21] MEDS ORDERED: Ondansetron 4 MG/2 ML SDV IVPUSH ONE (06:48)
== END 2022-06-21 07:55 | disposition home or self-care (01) ==
LOC: FB.ED 04:19
DX: S00.81XA Abrasion of other part of head, initial encounter (principal); F31.9 Bipolar disorder, unspecified; R56.9 Unspecified convulsions; F79 Unspecified intellectual disabilities; D72.829 Elevated white blood cell count, unspecified; Z86.16 Personal history of COVID-19; Z20.822 Contact with and (suspected) exposure to COVID-19
CPT/HCPCS: 0241U; 36415; 80053; 84484; 85025; 86140; 93005; 96374; 99285; J2405

== ENCOUNTER 2023-03-21 02:03 | Emergency (ER) | payer MEDICARE, MEDICAID ==
[2023-03-21 02:28] LABS: HEMATOCRIT 32.3 % (38.3-50.1); HEMOGLOBIN 10.1 g/dL (12.9-17.7); MEAN CORPUSCULAR HEMOGLOBIN 23.7 pg (27.0-33.3); MEAN CORPUSCULAR HGB CONC 31.2 g/dL (28.7-35.3); MEAN CORPUSCULAR VOLUME 75.9 fL (80.8-98.7); MEAN PLATELET VOLUME 6.7 fL (6.7-11.0); PLATELET COUNT,PLT 603 x10(3)uL (117-477); RED BLOOD CELL COUNT 4.25 x10(6)uL (3.90-5.90); RED CELL DISTRIBUTION WIDTH 16.2 % (12.4-15.0); WHITE BLOOD CELL COUNT,WBC 16.5 x10-3/uL (3.2-10.1)
[2023-03-21 02:32] LABS: BLOOD UREA NITROGEN,BUN 14 mg/dL (7-18); CALCIUM 9.1 mg/dL (8.6-10.2); CARBON DIOXIDE,CO2 31 mmol/L (21-32); CHLORIDE,CL 104 mmol/L (100-110); CREATININE 0.7 mg/dL (0.70-1.30); EST CRCL DRUG DOSING (CG) 94.28 mL/min; ESTIMATED GFR 126 mL/min (>60); GLUCOSE RANDOM 112 mg/dL (80-116); POTASSIUM,K 4.1 mmol/L (3.5-5.3); SODIUM,NA 141 mmol/L (135-145)
[2023-03-21 02:52] LABS: BAND PERCENT MAN 1 % (0-6); BASOPHILS PERCENT MAN 1 % (0-2); LYMPHOCYTES PERCENT MAN 12 % (13-37); MONOCYTES PERCENT MAN 1 % (4-12); SEG NEUTROPHILS PERCENT MAN 85 % (46-82)
[2023-03-21] MEDS ORDERED: Amoxicillin/Clavulanate K 875-125 MG Tab PO ONE (03:02)
== END 2023-03-21 03:25 | disposition home or self-care (01) ==
LOC: FB.ED 02:03
DX: J18.9 Pneumonia, unspecified organism (principal); F20.9 Schizophrenia, unspecified; Q89.8 Other specified congenital malformations; F17.210 Nicotine dependence, cigarettes, uncomplicated; Z86.16 Personal history of COVID-19
CPT/HCPCS: 36415; 71045; 80048; 84484; 85025; 85379; 93005; 99284; A9270; 93010; 99283

== ENCOUNTER 2023-03-27 15:04 | Emergency (ER) | payer MEDICARE, MEDICAID ==
[2023-03-27] MEDS ORDERED: Sodium Chloride 0.9% 10 ML Syringe FLUSH PRN (15:45)
[2023-03-27] MEDS ORDERED: Piperacillin/Tazobactam 3.375 GM in Sodium Chloride 0.9% 50 ML IV STA (16:12)
[2023-03-27 16:15] LABS: HEMATOCRIT 31.8 % (38.3-50.1); HEMOGLOBIN 9.9 g/dL (12.9-17.7); MEAN CORPUSCULAR HEMOGLOBIN 23.4 pg (27.0-33.3); MEAN CORPUSCULAR HGB CONC 31.2 g/dL (28.7-35.3); MEAN CORPUSCULAR VOLUME 75.1 fL (80.8-98.7); MEAN PLATELET VOLUME 6.7 fL (6.7-11.0); PLATELET COUNT,PLT 684 x10(3)uL (117-477); RED BLOOD CELL COUNT 4.23 x10(6)uL (3.90-5.90); WHITE BLOOD CELL COUNT,WBC 19.6 x10-3/uL (3.2-10.1)
[2023-03-27 16:19] LABS: BLOOD UREA NITROGEN,BUN 11 mg/dL (7-18); BUN/CREATININE RATIO 18.3 (9-20); CALCIUM 9.7 mg/dL (8.6-10.2); CARBON DIOXIDE,CO2 31 mmol/L (21-32); CHLORIDE,CL 103 mmol/L (100-110); CREATININE 0.6 mg/dL (0.70-1.30); ESTIMATED GFR 132 mL/min (>60); GLUCOSE RANDOM 98 mg/dL (80-116); POTASSIUM,K 3.8 mmol/L (3.5-5.3); SODIUM,NA 140 mmol/L (135-145)
[2023-03-27 16:25] LABS: A/G RATIO 0.5; ALANINE AMINOTRANSFERASE,ALT 20 U/L (12-36); ALBUMIN 2.5 g/dL (3.5-5.2); ALKALINE PHOSPHATASE 92 IU/L (56-112); ASPARTATE AMNIOTRANSFERASE,AST 16 IU/L (5-25); BILIRUBIN TOTAL 0.2 mg/dL (0.1-1.3); PROTEIN TOTAL,TP 7.4 g/dL (6.0-8.0)
[2023-03-27 16:27] LABS: BAND PERCENT MAN 1 % (0-6); EOSINOPHILS PERCENT MAN 1 % (0-5); LYMPHOCYTES PERCENT MAN 9 % (13-37); MONOCYTES PERCENT MAN 4 % (4-12); SEG NEUTROPHILS PERCENT MAN 85 % (46-82)
[2023-03-27 16:28] LABS: LACTIC ACID 1.1 mmol/L (0.4-2.0)
[2023-03-27 16:33] LABS: INFLUENZA A NAA NEGATIVE (NEGATIVE); INFLUENZA B NAA NEGATIVE (NEGATIVE)
[2023-03-27 16:39] LABS: CORONAVIRUS COVID-19 NAA NEGATIVE (NEGATIVE)
[2023-03-27] MEDS ORDERED: VANCOmycin 1 GM/200 ML 1 GM in Premix Bag 1 BAG IV ONE (16:45)
[2023-03-27] MEDS ORDERED: Sodium Chloride 0.9% 1,000 ML IV SCH (17:00)
== END 2023-03-27 17:50 ==
LOC: FB.ED 15:04
DX: J18.9 Pneumonia, unspecified organism (principal); J86.9 Pyothorax without fistula; J90 Pleural effusion, not elsewhere classified; R56.9 Unspecified convulsions; Q89.8 Other specified congenital malformations; F32.9 Major depressive disorder, single episode, unspecified; R05.9 Cough, unspecified; J94.8 Other specified pleural conditions; J98.4 Other disorders of lung; R59.0 Localized enlarged lymph nodes; Z20.822 Contact with and (suspected) exposure to COVID-19
CPT/HCPCS: 0240U; 36415; 71250; 80053; 83605; 85025; 86140; 87040; 96365; 96367; 99285; J2543; J3370; J3490; J7030

== ENCOUNTER 2024-12-09 08:52 | Emergency (ER) | payer MEDICARE, MEDICAID | END 2024-12-09 09:30 | disposition home or self-care (01) | LOC: FB.ED 08:52 | DX: K04.7 Periapical abscess without sinus (principal); Z79.899 Other long term (current) drug therapy; Z86.16 Personal history of COVID-19 | CPT/HCPCS: 99282 ==